=== PATIENT | male | born 1970 | race Hispanic/Latino ===

== ENCOUNTER 2022-03-06 22:10 | Inpatient (IN) | payer MEDICARE ==
[2022-03-06] MEDS ORDERED: ONDANSETRON 4 MG/2 ML INJ IV ONE (23:20)
[2022-03-06] MEDS ORDERED: cefTRIAXone/NS 1 GM/50 ML 1 GM/50 ML BAG IV ONE (23:20)
[2022-03-06] MEDS ORDERED: MORPHINE 4 MG/1 ML INJ IV ONE (23:20)
[2022-03-06] MEDS ORDERED: SODIUM CHLORIDE 0.9% 1000 ML IV SOLN IV ONE (23:20)
[2022-03-06] MEDS ORDERED: VANCOMYCIN 1,750 MG in SODIUM CHLORIDE 0.9% 500 ML 500 ML IV ONE (23:20)
[2022-03-06] MEDS ORDERED: TETANUS,DIPH,PERTUSS(ACELL) VACCINE 0.5 ML SYRINGE IM ONE (23:22)
--- NOTE | 2022-03-06 23:26 | Emergency Department Report ---
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 He denies headache, neck pain, chest pain. He denies IV drug use. He is not sure if he is having bladder or bowel retention or incontinence. He has some preserved sensation in his lower extremities. This is never happened to him before. -: hour(s) Location: abdomen Consistency: constant Improves with: none Worsens with: none - Related Data Allergies Allergy/AdvReac Type Severity Reaction Status Date / Time Fish Containing Products Allergy Anaphylaxis Verified 03/07/22 00:21 ED Review of Systems ROS: Stated complaint: LEG NUMBNESS Other details as noted in HPI Constitutional: fever, malaise, weakness Eyes: denies: eye discharge ENT: denies: epistaxis Respiratory: denies: wheezing Cardiovascular: denies: syncope Gastrointestinal: abdominal pain Genitourinary: denies: dysuria Musculoskeletal: denies: back pain Skin: lesions Neurological: weakness ED Past Medical Hx - Past Medical History Previous Medical History?: Yes Hx Diabetes: Yes Additional medical history: DVT - Surgical History Past Surgical History?: No - Social History Smoking Status: Current Every Day Smoker Substance Use Type: None ED Physical Exam - General Limitations: Physical Limitation General appearance: alert, anxious, obese - Head Head exam: Present: atraumatic, normocephalic - Eye Eye exam: Present: normal appearance, EOMI. Absent: nystagmus - ENT ENT exam: Present: normal exam, normal orophraynx, mucous membranes moist, normal external ear exam - Neck Neck exam: Present: normal inspection, full ROM. Absent: tenderness, meningismus - Respiratory Respiratory exam: Present: normal lung sounds bilaterally. Absent: respiratory distress, wheezes, rales, rhonchi, stridor, decreased breath sounds - Cardiovascular Cardiovascular Exam: Present: normal rhythm, tachycardia, normal heart sounds. Absent: bradycardia, irregular rhythm, systolic murmur, diastolic murmur, rubs, gallop - GI/Abdominal GI/Abdominal exam: Present: soft, tenderness. Absent: distended, guarding, rebound, rigid, pulsatile mass - Rectal Rectal exam: Present: normal inspection, decreased rectal tone - exam: Present: normal inspection - Extremities Exam Extremities exam: Present: other (2+ pulses noted to the bilateral upper and lower extremities. There is no long bony tenderness. The muscular compartments are soft. Lower extremities are warm and well-perfused). Absent: normal inspection (There is erythema and oozing noted to the right great toe), full ROM, tenderness, calf tenderness - Back Exam Back exam: Present: normal inspection. Absent: tenderness, CVA tenderness (R), CVA tenderness (L), paraspinal tenderness, vertebral tenderness - Neurological Exam Neurological exam: Present: alert (Plantar reflexes minimally intact. Quadriceps are mute), oriented X3, motor sensory deficit, other (There is no facial droop. The tongue is midline. EOMI. 5/5 strength bilateral upper e xtremities. Sensation is intact to light touch in the bilateral upper extremities. 0 out of 5 strength bilateral lower extremities. Sensation is decreased to light touch in the bilateral lower extremities.). Absent: reflexes normal - Psychiatric Psychiatric exam: Present: anxious - Skin Skin exam: Present: warm ED Course Vital Signs 03/06/22 03/07/22 03/07/22 23:00 00:00 00:04 Temperature 99 F 101.2 F H Pulse Rate 98 H 105 H 105 H Respiratory 18 18 Rate Blood Pressure 100/64 Blood Pressure 107/60 [Left] O2 Sat by Pulse 98 95 Oximetry 03/07/22 03/07/22 03/07/22 00:06 00:13 00:14 Temperature Pulse Rate 106 H 104 H 101 H Respiratory 22 Rate Blood Pressure 97/60 Blood Pressure 97/60 [Left] O2 Sat by Pulse 93 Oximetry - Reevaluation(s) Reevaluation #1: 03/07/22 00:21 Differential diagnosis, including but not limited to: Spinal epidural abscess, intra-abdominal abscess, psoas abscess, pneumonia, UTI, right great toe abscess, spinal infarct Assessment and plan: 51-year-old gentleman, febrile, tachycardic, with obvious right great toe abscess, with complaints of lower extremity weakness and numbness. He also has diffuse abdominal pain and mild tenderness. Code sepsis activated overhead. Start broad-spectrum antibiotics, appropriate fluids, pain medication, and supportive care. Obtain CT scan of the CT and L-spine, CT scan abdomen pelvis, and right foot x-ray. Do not have access to MRI capability at this point time. Discussed with neurosurgery and general surgery once initial diagnostic studies have resulted. Multiple phone calls made to the lab to expedite results of labs. Patient reports a shellfish/seafood allergy, but not a true iodine allergy 03/07/22 00:40 Right x-ray toe reviewed and appreciated. We will also consider endocarditis at this point in time. Additional blood cultures ordered. Contacted general surgery on-call, Dr. Santos. Discussed history, physical, laboratory studies and imaging studies, and he will follow in consultation 03/07/22 00:53 Discussed the patient's history, physical, laboratory studies imaging studies, and clinical impression with neurology, Dr. Galvan. He does recommend rapid acquisition of MRI T and L-spine with and without contrast. We both agree this patient is not a tPA candidate. Laboratory studies are reviewed and appreciated. We will discuss with neurosurgery once initial imaging studies have resulted. 03/07/22 02:[address] and L-spine reviewed and appreciated. CT scan abdomen pelvis reviewed and appreciated. Lower extremity DVT study ordered. Hold anticoagulation given potential surgical consideration for this patient. Contacted neurosurgeon on-call, Dr. Wren. Discussed the patient's history, physical, laboratory studies and imaging studies and clinical impression. He will follow in consultation. He is in agreement that additional resuscitation, in the form of fluids, antibiotics and supportive care are indicated, patient not an operative candidate at this time. We are in agreement to order urgent MRI T and L-spine, with and without IV contrast, which can be done first thing in the morning. He advises that his group will be able to follow in consultation. Blood pressure is improved, patient put out approximately 1200 cc of urine. Hospital physician is paged to arrange admission. CT scan abdomen pelvis shows no intra-abdominal abscess. 03/07/22 02:35 Reevaluation #2: 03/07/22 03:11 Dr Salcedo to admit to [facility] ED Medical Decision Making - Lab Data Result diagrams: 03/06/22 23:42 03/06/22 23:42 Vital Signs 03/06/22 03/07/22 03/07/22 23:00 00:00 00:04 Temperature 99 F 101.2 F H Pulse Rate 98 H 105 H 105 H Respiratory 18 18 Rate Blood Pressure 100/64 Blood Pressure 107/60 [Left] O2 Sat by Pulse 98 95 Oximetry 03/07/22 03/07/22 03/07/22 00:06 00:13 00:14 Temperature Pulse Rate 106 H 104 H 101 H Respiratory 22 Rate Blood Pressure 97/60 Blood Pressure 97/60 [Left] O2 Sat by Pulse 93 Oximetry Rectal temperature 101.2 degrees Lab Results 03/06/22 03/06/22 03/06/22 Range/Units 00:00 00:00 23:42 WBC 17.0 H (4.5-11.0) K/mm3 RBC 4.12 (3.65-5.03) M/mm3 Hgb 11.9 (11.8-15.2) gm/dl Hct 35.9 (35.5-45.6) % MCV 87 (84-94) fl MCH 29 (28-32) pg MCHC 33 (32-34) % RDW 13.9 (13.2-15.2) % Plt Count 306 (140-440) K/mm3 Lymph % (Auto) 5.2 L (13.4-35.0) % [place] % (Auto) 6.2 (0.0-7.3) % Eos % (Auto) 0.2 (0.0-4.3) % Baso % (Auto) 0.3 (0.0-1.8) % Lymph # (Auto) 0.9 L (1.2-5.4) K/mm3 [place] # (Auto) 1.0 H (0.0-0.8) K/mm3 Eos # (Auto) 0.0 (0.0-0.4) K/mm3 Baso # (Auto) 0.0 (0.0-0.1) K/mm3 Seg Neutrophils % 88.1 H (40.0-70.0) % Seg Neutrophils # 15.0 H (1.8-7.7) K/mm3 PT (12.2-14.9) Sec. INR (0.87-1.13) APTT (24.2-36.6) Sec. VBG pH 7.480 H (7.320-7.420) Estimated GFR ml/min BUN/Creatinine Ratio % Lactic Acid 1.40 (0.7-2.0) mmol/L Troponin T (0.00-0.029) ng/mL Albumin/Globulin Ratio % 03/06/22 03/06/22 Range/Units 23:42 23:42 WBC (4.5-11.0) K/mm3 RBC (3.65-5.03) M/mm3 Hgb (11.8-15.2) gm/dl Hct (35.5-45.6) % MCV (84-94) fl MCH (28-32) pg MCHC (32-34) % RDW (13.2-15.2) % Plt Count (140-440) K/mm3 Lymph % (Auto) (13.4-35.0) % [place] % (Auto) (0.0-7.3) % Eos % (Auto) (0.0-4.3) % Baso % (Auto) (0.0-1.8) % Lymph # (Auto) (1.2-5.4) K/mm3 [place] # (Auto) (0.0-0.8) K/mm3 Eos # (Auto) (0.0-0.4) K/mm3 Baso # (Auto) (0.0-0.1) K/mm3 Seg Neutrophils % (40.0-70.0) % Seg Neutrophils # (1.8-7.7) K/mm3 PT 15.3 H (12.2-14.9) Sec. INR 1.09 (0.87-1.13) APTT 24.3 (24.2-36.6) Sec. VBG pH (7.320-7.420) Estimated GFR 58 ml/min BUN/Creatinine Ratio 14 % Lactic Acid (0.7-2.0) mmol/L Troponin T < 0.010 (0.00-0.029) ng/mL Albumin/Globulin Ratio 0.8 % Lab Results 03/06/22 03/06/22 03/06/22 Range/Units 00:00 00:00 23:42 WBC 17.0 H (4.5-11.0) K/mm3 RBC 4.12 (3.65-5.03) M/mm3 Hgb 11.9 (11.8-15.2) gm/dl Hct 35.9 (35.5-45.6) % MCV 87 (84-94) fl MCH 29 (28-32) pg MCHC 33 (32-34) % RDW 13.9 (13.2-15.2) % Plt Count 306 (140-440) K/mm3 Lymph % (Auto) 5.2 L (13.4-35.0) % [place] % (Auto) 6.2 (0.0-7.3) % Eos % (Auto) 0.2 (0.0-4.3) % Baso % (Auto) 0.3 (0.0-1.8) % Lymph # (Auto) 0.9 L (1.2-5.4) K/mm3 [place] # (Auto) 1.0 H (0.0-0.8) K/mm3 Eos # (Auto) 0.0 (0.0-0.4) K/mm3 Baso # (Auto) 0.0 (0.0-0.1) K/mm3 Seg Neutrophils % 88.1 H (40.0-70.0) % Seg Neutrophils # 15.0 H (1.8-7.7) K/mm3 PT (12.2-14.9) Sec. INR (0.87-1.13) APTT (24.2-36.6) Sec. VBG pH 7.480 H (7.320-7.420) Sodium (137-145) mmol/L Potassium (3.6-5.0) mmol/L Chloride (98-107) mmol/L Carbon Dioxide (22-30) mmol/L Anion Gap mmol/L BUN (9-20) mg/dL Creatinine (0.8-1.3) mg/dL Estimated GFR ml/min BUN/Creatinine Ratio % Glucose (75-100) mg/dL Lactic Acid 1.40 (0.7-2.0) mmol/L Calcium (8.4-10.2) mg/dL Total Bilirubin (0.1-1.2) mg/dL AST (5-40) units/L ALT (7-56) units/L Alkaline Phosphatase (35-129) units/L Troponin T (0.00-0.029) ng/mL Total Protein (6.3-8.2) g/dL Albumin (3.9-5) g/dL Albumin/Globulin Ratio % 03/06/22 03/06/22 Range/Units 23:42 23:42 WBC (4.5-11.0) K/mm3 RBC (3.65-5.03) M/mm3 Hgb (11.8-15.2) gm/dl Hct (35.5-45.6) % MCV (84-94) fl MCH (28-32) pg MCHC (32-34) % RDW (13.2-15.2) % Plt Count (140-440) K/mm3 Lymph % (Auto) (13.4-35.0) % [place] % (Auto) (0.0-7.3) % Eos % (Auto) (0.0-4.3) % Baso % (Auto) (0.0-1.8) % Lymph # (Auto) (1.2-5.4) K/mm3 [place] # (Auto) (0.0-0.8) K/mm3 Eos # (Auto) (0.0-0.4) K/mm3 Baso # (Auto) (0.0-0.1) K/mm3 Seg Neutrophils % (40.0-70.0) % Seg Neutrophils # (1.8-7.7) K/mm3 PT 15.3 H (12.2-14.9) Sec. INR 1.09 (0.87-1.13) APTT 24.3 (24.2-36.6) Sec. VBG pH (7.320-7.420) Sodium 128 L (137-145) mmol/L Potassium 3.3 L (3.6-5.0) mmol/L Chloride 83.9 L (98-107) mmol/L Carbon Dioxide 28 (22-30) mmol/L Anion Gap 19 mmol/L BUN 18 (9-20) mg/dL Creatinine 1.3 (0.8-1.3) mg/dL Estimated GFR 58 ml/min BUN/Creatinine Ratio 14 % Glucose 206 H (75-100) mg/dL Lactic Acid (0.7-2.0) mmol/L Calcium 8.0 L (8.4-10.2) mg/dL Total Bilirubin 1.00 (0.1-1.2) mg/dL AST 29 (5-40) units/L ALT 18 (7-56) units/L Alkaline Phosphatase 141 H (35-129) units/L Troponin T < 0.010 (0.00-0.029) ng/mL Total Protein 7.0 (6.3-8.2) g/dL Albumin 3.0 L (3.9-5) g/dL Albumin/Globulin Ratio 0.8 % - EKG Data -: EKG Interpreted by [facility] EKG shows normal: sinus rhythm Rate: tachycardia - EKG Data When compared to previous EKG there are: previous EKG unavailable 03/07/22 00:16 The EKG is interpreted at 12: 0 8 AM Sinus rhythm, tachycardia, rate 103 bpm. Normal axis, left ventricular hypertrophy, motion artifact, QTC 505 ms. Abnormal EKG. Not a STEMI. - Radiology Data Radiology results: pending, report reviewed, image reviewed CHEST 1 VIEW 03/06/2022 11:22 PM INDICATION / CLINICAL INFORMATION: sepsis. COMPARISON: None available. FINDINGS: SUPPORT DEVICES: None. HEART / MEDIASTINUM: No significant abnormality. LUNGS / PLEURA: No significant pulmonary or pleural abnormality. No pneumothorax. ADDITIONAL FINDINGS: No significant additional findings. IMPRESSION: 1. No acute findings. Signer Name: Johnnie Piña DO Signed: 03/06/2022 11:27 PM Workstation Name: [id number] RIGHT FOOT 3 VIEW(S) INDICATION / CLINICAL INFORMATION: right great toe wound COMPARISON: None available. FINDINGS: BONES / JOINT(S): Cortical irregularity and erosive changes along distal aspect of proximal phalanx of the first digit suggesting osteomyelitis. No significant arthritis. SOFT TISSUES: No subcutaneous gas or clearly identified skin ulceration. ADDITIONAL FINDINGS: None. Signer Name: Johnnie Piña DO Signed: 03/06/2022 11:27 PM Workstation Name: [id number] CT ABDOMEN AND PELVIS WITH CONTRAST INDICATION / CLINICAL INFORMATION: acute abd pain sepsis. TECHNIQUE: Axial CT images were obtained through the abdomen and pelvis after 100 cc of Omnipaque [address] scans at this location are performed using CT dose reduction for ALARA by means of automated exposure control. COMPARISON: None available. FINDINGS: LOWER CHEST: There is a 7 mm solid pulmonary nodule within the right lung base (series 2 image 11). There is a trace right pleural effusion with adjacent compressive atelectasis. AORTA / ARTERIES: Mild atherosclerotic calcification without acute abnormality. IVC / VEINS: There is hypoattenuation within the right proximal superficial fem oral artery and common femoral artery suggesting possible thrombus. LYMPH NODES: No significant adenopathy. COLON: No significant abnormality. APPENDIX: No significant abnormality. STOMACH / SMALL BOWEL: No significant abnormality. PERITONEUM: No free fluid. No free air. No fluid collection. LIVER: No significant abnormality. GALLBLADDER: No significant abnormality. BILE DUCTS: No significant abnormality. PANCREAS: No significant abnormality. SPLEEN: No significant abnormality. ADRENALS: No significant abnormality. RIGHT KIDNEY / URETER: No significant abnormality. LEFT KIDNEY / URETER: No significant abnormality. URINARY BLADDER: No significant abnormality. REPRODUCTIVE ORGANS: No significant abnormality. SKELETAL SYSTEM: Scattered degeneration. ADDITIONAL FINDINGS: None. IMPRESSION: 1. Low attenuation is seen within the right superficial femoral and common femoral veins which nonspecific may represent thrombus. Recommend DVT ultrasound for clarification. 2. No acute intr a-abdominal intrapelvic pathology. 3. Single incidental pulmonary nodule(s) in the right lower lobe measuring 7 mm with solid characteristics. Recommendation according to Fleischner Society 2017 Guidelines: Low Risk Patient: CT at 6-12 months, then consider CT at 18-24 months; High Risk Patient: CT at 6-12 months, then CT at 18-24 months 4. Trace right pleural effusion with adjacent atelectasis. Signer Name: Johnnie Piña DO Signed: 03/07/2022 12:50 AM Workstation Name: [id number] CT CERVICAL SPINE WITHOUT CONTRAST INDICATION / CLINICAL INFORMATION: lower ext weakness numbess sepsis. TECHNIQUE: Axial CT images were obtained through the cervical spine. Sagittal and coronal reformatted images were produced. All CT scans at this location are performed using CT dose reduction for ALARA by means of automated exposure control. COMPARISON: None available. FINDINGS: VERTEBRAE: No significant abnormality. ALIGNMENT: No significant abnormality. DISC SPACES: There is moderate to severe degenerative disc disease at C6-C7 and mild scattered degenerative disc disease throughout the remainder of the cervical spine. FACET JOINTS: No significant abnormality. CRANIOCERVICAL JUNCTION:No significant abnormality. SPINAL CANAL: No significant abnormality. PARASPINAL SOFT TISSUES: No significant abnormality. ADDITIONAL FINDINGS: None. LUNG APICES: No significant abnormality of visualized lungs. IMPRESSION: 1. No acute fracture or static subluxation of the cervical spine. 2. Moderate severe degenerative disc disease at C6-C7. CT THORACIC SPINE WITHOUT CONTRAST INDICATION / CLINICAL INFORMATION: lower ext weakness numbess sepsis. TECHNIQUE: Axial CT images were obtained through the thoracic spine. Sagittal and coronal reformatted images were produced. All CT scans at this location are performed using CT dose reduction for ALARA by means of automated exposure control. COMPARISON: None available. FINDINGS: VERTEBRAE: No significant abnormality. ALIGNMENT: No significant abnormality. DISC SPACES: Scattered degenerative disc disease throughout the thoracic spine. FACET and COSTOVERTEBRAL JOINTS: Scattered degenerative facet disease throughout the thoracic spine. CERVICOTHORACIC JUNCTION:No significant abnormality. SPINAL CANAL: No significant abnormality. PARASPINAL SOFT TISSUES: No significant abnormality. ADDITIONAL FINDINGS: None. LUNGS: There is scattered atelectasis within the visualized lungs. There is a trace right pleural effusion with adjacent atelectasis. Solid pulmonary nodule within the right lower lobe better appreciated on CT of the abdomen and pelvis. IMPRESSION: 1. No acute fracture or static subluxation of the thoracic spine. 2. Scattered spondylosis. 3. Scattered atelectasis. CT LUMBAR SPINE WITHOUT CONTRAST INDICATION / CLINICAL INFORMATION: lower ext weakness numbess sepsis. TECHNIQUE: Axial CT images were obtained through the lumbar spine. Sagittal and coronal reformatted images were produced. All CT scans at this location are performed using CT dose reduction for ALARA by means of automated exposure control. COMPARISON: None available. FINDINGS: VERTEBRAE: No significant abnormality. ALIGNMENT: No significant abnormality. DISC SPACES: There is scattered degenerative disc disease throughout the lumbar spine, most pronounced at L5-S1. FACET JOINTS: There is scattered degenerative facet disease, most pronounced at L5-S1. SPINAL CANAL: No significant abnormality. SACRUM:No significant abnormality of the visualized sacrum. PARASPINAL SOFT TISSUES: No significant abnormality. ADDITIONAL FINDINGS: None. IMPRESSION: 1. No static subluxation or acute fracture of the lumbar spine. 2. Scattered degenerative disc and facet disease of the lumbar spine. Signer Name: Johnnie Piña DO Signed: 03/07/2022 12:57 AM Workstation Name: [id number] Critical Care Time: Yes Critical care time in (mins) excluding proc time.: 45 Critical care attestation.: If time is entered above; I have spent that time in minutes in the direct care of this critically ill patient, excluding procedure time. ED Disposition Clinical Impression: Sepsis, Open wound of right great toe, Acute abdominal pain, Weakness of lower extremity Disposition: ADMITTED INPATIENT Is pt being admited?: Yes Does the pt Need Aspirin: No Condition: Critical Referrals: LENA MANCUSO MD [Primary Care Provider] - 3-5 Days
[2022-03-06] MEDS ORDERED: VANCOMYCIN PHARMACY TO DOSE IV SCH (23:45)
[2022-03-07 00:31] LABS: Alanine Aminotransferase 18 units/L (7-56); BUN/Creatinine Ratio 14; Blood Urea Nitrogen 18 mg/dL (9-20); Hemolysis Index 0
--- NOTE | 2022-03-07 00:31 | XRay Report ---
RIGHT FOOT 3 VIEW(S) INDICATION / CLINICAL INFORMATION: right great toe wound COMPARISON: None available. FINDINGS: BONES / JOINT(S): Cortical irregularity and erosive changes along distal aspect of proximal phalanx o f the first digit suggesting osteomyelitis. No significant arthritis. SOFT TISSUES: No subcutaneous gas or clearly identified skin ulceration. ADDITIONAL FINDINGS: None. Signer Name: Johnnie Piña DO Signed: 03/07/2022 12:27 AM Workstation Name: [id number]
--- NOTE | 2022-03-07 00:32 | XRay Report ---
CHEST 1 VIEW 03/06/2022 11:22 PM INDICATION / CLINICAL INFORMATION: sepsis. COMPARISON: None available. FINDINGS: SUPPORT DEVICES: None. HEART / MEDIASTINUM: No significant abnormality. LUNGS / PLEURA: No significant pulmonary or pleural abnormality. No pneumothorax. ADDITIONAL FINDINGS: No significant additional findings. IMPRESSION: 1. No acute findings. Signer Name: Johnnie Piña DO Signed: 03/07/2022 12:27 AM Workstation Name: [id number]
[2022-03-07 00:34] LABS: Basophils % (Auto) 0.3 % (0.0-1.8); Eosinophils % (Auto) 0.2 % (0.0-4.3); Hematocrit 35.9 % (35.5-45.6); Hemoglobin 11.9 gm/dl (11.8-15.2); INR 1.09 (0.87-1.13); Lymphocytes # (Auto) 0.9 K/mm3 (1.2-5.4); Lymphocytes % (Auto) 5.2 % (13.4-35.0); Mean Corpuscular HGB Conc 33 % (32-34); Mean Corpuscular Volume 87 fl (84-94); Monocytes % (Auto) 6.2 % (0.0-7.3); Platelet Count 306 K/mm3 (140-440); Red Blood Count 4.12 M/mm3 (3.65-5.03); Red Cell Distribution Width 13.9 % (13.2-15.2)
[2022-03-07 00:35] LABS: Partial Thromboplastin Time 24.3 Sec. (24.2-36.6)
[2022-03-07 00:54] LABS: Erythrocyte Sedimentation Rate 50 mm/Hr (0-20)
[2022-03-07] MEDS ORDERED: ACETAMINOPHEN 500 MG TAB PO ONE (01:44)
[2022-03-07] MEDS ORDERED: SODIUM CHLORIDE 0.9% 1000 ML 3,000 ML ONE (01:47)
--- NOTE | 2022-03-07 01:54 | Cat Scan Report ---
CT ABDOMEN AND PELVIS WITH CONTRAST INDICATION / CLINICAL INFORMATION: acute abd pain sepsis. TECHNIQUE: Axial CT images were obtained through the abdomen and pelvis after 100 cc of Omnipaque [address] scans at this location are performed using CT dose reduction for ALARA by means of automated exposure control. COMPARISON: None available. FINDINGS: LOWER CHEST: There is a 7 mm solid pulmonary nodule within the right lung base (series 2 image 11). T here is a trace right pleural effusion with adjacent compressive atelectasis. AORTA / ARTERIES: Mild atherosclerotic calcification without acute abnormality. IVC / VEINS: There is hypoattenuation within the right proximal superficial femoral artery and common femoral artery suggesting possible thrombus. LYMPH NODES: No significant adenopathy. COLON: No significant abnormality. APPENDIX: No significant abnormality. STOMACH / SMALL BOWEL: No significant abnormality. PERITONEUM: No free fluid. No free air. No fluid collection. LIVER: No significant abnormality. GALLBLADDER: No significant abnormality. BILE DUCTS: No significant abnormality. PANCREAS: No significant abnormality. SPLEEN: No significant abnormality. ADRENALS: No significant abnormality. RIGHT KIDNEY / URETER: No significant abnormality. LEFT KIDNEY / URETER: No significant abnormality. URINARY BLADDER: No significant abnormality. REPRODUCTIVE ORGANS: No significant abnormality. SKELETAL SYSTEM: Scattered degeneration. ADDITIONAL FINDINGS: None. IMPRESSION: 1. Low attenuation is seen within the right superficial femoral and common femoral veins which nonspe cific may represent thrombus. Recommend DVT ultrasound for clarification. 2. No acute intra-abdominal intrapelvic pathology. 3. Single incidental pulmonary nodule(s) in the right lower lobe measuring 7 mm with solid characteri stics. Recommendation according to Fleischner Society 2017 Guidelines: Low Risk Patient: CT at 6-12 m onths, then consider CT at 18-24 months; High Risk Patient: CT at 6-12 months, then CT at 18-24 month s 4. Trace right pleural effusion with adjacent atelectasis. Signer Name: Johnnie Piña DO Signed: 03/07/2022 1:50 AM Workstation Name: [id number]
--- NOTE | 2022-03-07 02:01 | Cat Scan Report ---
CT CERVICAL SPINE WITHOUT CONTRAST INDICATION / CLINICAL INFORMATION: lower ext weakness numbess sepsis. TECHNIQUE: Axial CT images were obtained through the cervical spine. Sagittal and coronal reformatted images were produced. All CT scans at this location are performed using CT dose reduction for ALARA by means of automated exposure control. COMPARISON: None available. FINDINGS: VERTEBRAE: No significant abnormality. ALIGNMENT: No significant abnormality. DISC SPACES: There is moderate to severe degenerative disc disease at C6-C7 and mild scattered degene rative disc disease throughout the remainder of the cervical spine. FACET JOINTS: No significant abnormality. CRANIOCERVICAL JUNCTION:No significant abnormality. SPINAL CANAL: No significant abnormality. PARASPINAL SOFT TISSUES: No significant abnormality. ADDITIONAL FINDINGS: None. LUNG APICES: No significant abnormality of visualized lungs. IMPRESSION: 1. No acute fracture or static subluxation of the cervical spine. 2. Moderate severe degenerative disc disease at C6-C7. CT THORACIC SPINE WITHOUT CONTRAST INDICATION / CLINICAL INFORMATION: lower ext weakness numbess sepsis. TECHNIQUE: Axial CT images were obtained through the thoracic spine. Sagittal and coronal reformatted images were produced. All CT scans at this location are performed using CT dose reduction for ALARA by means of automated exposure control. COMPARISON: None available. FINDINGS: VERTEBRAE: No significant abnormality. ALIGNMENT: No significant abnormality. DISC SPACES: Scattered degenerative disc disease throughout the thoracic spine. FACET and COSTOVERTEBRAL JOINTS: Scattered degenerative facet disease throughout the thoracic spine. CERVICOTHORACIC JUNCTION:No significant abnormality. SPINAL CANAL: No significant abnormality. PARASPINAL SOFT TISSUES: No significant abnormality. ADDITIONAL FINDINGS: None. LUNGS: There is scattered atelectasis within the visualized lungs. There is a trace right pleural eff usion with adjacent atelectasis. Solid pulmonary nodule within the right lower lobe better appreciate d on CT of the abdomen and pelvis. IMPRESSION: 1. No acute fracture or static subluxation of the thoracic spine. 2. Scattered spondylosis. 3. Scattered atelectasis. CT LUMBAR SPINE WITHOUT CONTRAST INDICATION / CLINICAL INFORMATION: lower ext weakness numbess sepsis. TECHNIQUE: Axial CT images were obtained through the lumbar spine. Sagittal and coronal reformatted i mages were produced. All CT scans at this location are performed using CT dose reduction for ALARA by means of automated exposure control. COMPARISON: None available. FINDINGS: VERTEBRAE: No significant abnormality. ALIGNMENT: No significant abnormality. DISC SPACES: There is scattered degenerative disc disease throughout the lumbar spine, most pronounce d at L5-S1. FACET JOINTS: There is scattered degenerative facet disease, most pronounced at L5-S1. SPINAL CANAL: No significant abnormality. SACRUM:No significant abnormality of the visualized sacrum. PARASPINAL SOFT TISSUES: No significant abnormality. ADDITIONAL FINDINGS: None. IMPRESSION: 1. No static subluxation or acute fracture of the lumbar spine. 2. Scattered degenerative disc and facet disease of the lumbar spine. Signer Name: Johnnie Piña DO Signed: 03/07/2022 1:57 AM Workstation Name: [id number]
[2022-03-07] MEDS ORDERED: ONDANSETRON 4 MG/2 ML INJ ONE (02:10)
[2022-03-07] MEDS ORDERED: MORPHINE 4 MG/1 ML INJ ONE (02:11)
[2022-03-07] MEDS ORDERED: SODIUM CHLORIDE 0.9% 1000 ML 1,000 ML IV ONE ×2 (02:14→11:15)
[2022-03-07 02:41] LABS: Bacteria,Urine 1+ /HPF (Negative); Bilirubin,Urine NEG (Negative); Blood,Urine LG (Negative); Color,Urine Yellow (Yellow); Mucus,Urine 1+ /HPF; RBC,Urine > 182.0 /HPF (0.0-6.0)
--- NOTE | 2022-03-07 04:00 | Vascular Lab Report ---
DUPLEX DOPPLER LOWER EXTREMITY VEINS, BILATERAL INDICATION / CLINICAL INFORMATION: ABNORMAL CT ABD/PELVIS, DVT. TECHNIQUE: Duplex doppler imaging was performed through the veins of both lower extremities using valencia ous compression and other maneuvers. COMPARISON: None available. FINDINGS: RIGHT COMMON FEMORAL VEIN: Acute thrombus. RIGHT FEMORAL VEIN: Acute thrombus. RIGHT POPLITEAL VEIN: Acute thrombus. RIGHT CALF VEINS: Negative. LEFT COMMON FEMORAL VEIN: Negative. LEFT FEMORAL VEIN: Negative. LEFT POPLITEAL VEIN: Negative. LEFT CALF VEINS: Negative. ADDITIONAL FINDINGS: None. IMPRESSION: 1. Deep vein thromboses noted from the right popliteal vein to the right common femoral vein. IMPORTANT FINDING Time of Communication (TILE PROFESSIONAL/CDT): 2:55 AM Licensed Practitioner Receiving Report: Dr. Richards Signer Name: Johnnie Piña DO Signed: 03/07/2022 3:55 AM Workstation Name: [id number]
[2022-03-07] MEDS: NORepinephrine/NS 8 MG-250 ML 8 MG/250 ML INFUS..BTL IV SCH ×2 (04:14→19:25)
[2022-03-07] MEDS ORDERED: ALBUTEROL 2.5 MG/3 ML NEBU IH PRN (04:27)
[2022-03-07] MEDS ORDERED: MORPHINE 2 MG/1 ML INJ IV PRN (04:27)
[2022-03-07] MEDS ORDERED: HYDROmorphone 1 MG/1 ML INJ IV PRN (04:27)
[2022-03-07] MEDS ORDERED: ONDANSETRON 4 MG/2 ML INJ IV PRN (04:27)
[2022-03-07] MEDS ORDERED: DEXTROSE 50% IN WATER (25GM) 50 ML SYRINGE IV PRN (04:27)
[2022-03-07] MEDS ORDERED: BUPIVACAINE-EPINEPHRINE/PF 0.25%-1:200,000 (10 ML) VIAL INFILTRATI ONE (04:28)
[2022-03-07] MEDS ORDERED: fentaNYL 100 MCG/2 ML INJ ONE (04:40)
--- NOTE | 2022-03-07 04:41 | History and Physical Report ---
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 He denies headache, neck pain, chest pain. Patient denies IV drug use. Patient is not sure if he is having bladder or bowel retention or incontinence.He has some preserved sensation in his lower extremities. In the emergency CT scan abdomen pelvis shows no intra-abdominal abscess. Chest x-ray shows no acute finding, CT cervical spine without contrast shows no acute fracture or static subluxation of the cervical spine. Moderate severe degenerative disc disease at C6-C7. CT lumbar spine without contrast shows no static subluxation or acute fracture of the lumbar spine. Scattered degenerative disc and facet disease of the lumbar spine. Foot x-ray shows cortical irregularity and erosive changes along the distal aspect of the proximal phalanx of the first disease suggesting osteomyelitis. Venous Doppler of the lower extremity shows deep vein thrombus noted from right popliteal vein to the right common femoral vein Past History Past Medical History: diabetes, DVT Past Surgical History: No surgical history Social history: smoking Family history: hypertension Medications and Allergies Allergies Allergy/AdvReac Type Severity Reaction Status Date / Time Fish Containing Products Allergy Anaphylaxis Verified 03/07/22 00:21 Active Meds: Active Medications Acetaminophen (Acetaminophen 325 Mg Tab) 650 mg PO Q4H PRN PRN Reason: Pain MILD(1-3)/Fever >100.5/DIETRICH Albuterol (Albuterol 2.5 Mg/3 Ml Nebu) 2.5 mg IH Q3HRT PRN PRN Reason: Shortness Of Breath Albuterol/Ipratropium (Ipratropium/Albuterol Sulfate 3 Ml Ampul.Neb) 1 ampul IH Q6HRT KARINE Dextrose (Dextrose 50% In Water (25gm) 50 Ml Syringe) 50 ml IV Q30MIN PRN; Protocol PRN Reason: Hypoglycemia Famotidine (Famotidine 20 Mg/2 Ml Inj) 20 mg IV BID KARINE Hydromorphone HCl (Hydromorphone 1 Mg/1 Ml Inj) 0.5 mg IV Q3H PRN PRN Reason: Pain , Severe (7-10) NORepinephrine/NS 8 MG-250 ML (Norepinephrine/Ns 8 Mg-250 Ml (Double Conc)) 8 mg in 250 mls @ 3.75 mls/hr IV TITRATE KARINE; Protocol Last Admin: 03/07/22 04:14 Dose: 2 mcg/min, 3.75 mls/hr Sodium Chloride (Nacl 0.9% 1000 Ml) 1,000 mls @ 125 mls/hr IV DIRECT KARINE Vancomycin HCl (Vancomycin/Ns 1 Gm/250 Ml) 1 gm in 250 mls @ 166.667 mls/hr IV Q12H KARINE; Protocol Piperacillin Sod/Tazobactam Sod (Zosyn/Ns 4.5gm/100ml) 4.5 gm in 100 mls @ 200 mls/hr IV Q8H KARINE; Protocol Insulin Human Lispro (Insulin Lispro 100 Unit/Ml) 0 unit SUB-Q Q6HR KARINE; Protocol Morphine Sulfate (Morphine 2 Mg/1 Ml Inj) 2 mg IV Q4H PRN PRN Reason: Pain, Moderate (4-6) Ondansetron HCl (Ondansetron 4 Mg/2 Ml Inj) 4 mg IV Q8H PRN PRN Reason: Nausea And Vomiting Sodium Chloride (Sodium Chloride 0.9% 10 Ml Flush Syringe) 10 ml IV BID KARINE Sodium Chloride (Sodium Chloride 0.9% 10 Ml Flush Syringe) 10 ml IV PRN PRN PRN Reason: LINE FLUSH Review of Systems All systems: negative Constitutional: weakness, other (complaint of bilateral lower extremity weakness and numbness, which started approximately 3 hours prior to ER arrival, and diffuse abdominal pain. He denies headache, neck pain, chest pain.) Exam - Constitutional Vitals: Temp Pulse Resp BP Pulse Ox 101.2 F H 97 H 21 96/52 96 03/07/22 00:00 03/07/22 04:31 03/07/22 04:31 03/07/22 03:45 03/07/22 04:31 General appearance: Present: no acute distress, well-nourished - EENT Eyes: Present: PERRL ENT: hearing intact, clear oral mucosa - Neck Neck: Present: supple, normal ROM - Respiratory Respiratory effort: normal Respiratory: bilateral: diminished - Cardiovascular Heart Sounds: Present: S1 & S2. Absent: rub, click - Extremities Extremities: pulses symmetrical, No edema Peripheral Pulses: within normal limits - Abdominal General gastrointestinal: Present: soft, non-tender, non-distended, normal bowel sounds Male genitourinary: Present: normal - Integumentary Integumentary: Present: clear, warm, dry - Musculoskeletal Musculoskeletal: gait normal, strength equal bilaterally - Psychiatric Psychiatric: appropriate mood/affect, intact judgment & insight - Neurologic Neurologic: CNII-XII intact, moves all extremities HEART Score - HEART Score Troponin: Troponin T < 0.010 ng/mL (0.00-0.029) 03/06/22 23:42 Results - Labs CBC & Chem 7: 03/06/22 23:42 03/06/22 23:42 Labs: Laboratory Last Values WBC 17.0 K/mm3 (4.5-11.0) H 03/06/22 23:42 RBC 4.12 M/mm3 (3.65-5.03) 03/06/22 23:42 Hgb 11.9 gm/dl (11.8-15.2) 03/06/22 23:42 Hct 35.9 % (35.5-45.6) 03/06/22 23:42 MCV 87 fl (84-94) 03/06/22 23:42 MCH 29 pg (28-32) 03/06/22 23:42 MCHC 33 % (32-34) 03/06/22 23:42 RDW 13.9 % (13.2-15.2) 03/06/22 23:42 Plt Count 306 K/mm3 (140-440) 03/06/22 23:42 Lymph % (Auto) 5.2 % (13.4-35.0) L 03/06/22 23:42 [place] % (Auto) 6.2 % (0.0-7.3) 03/06/22 23:42 Eos % (Auto) 0.2 % (0.0-4.3) 03/06/22 23:42 Baso % (Auto) 0.3 % (0.0-1.8) 03/06/22 23:42 Lymph # (Auto) 0.9 K/mm3 (1.2-5.4) L 05/08/22 23:42 [place] # (Auto) 1.0 K/mm3 (0.0-0.8) H 03/06/22 23:42 Eos # (Auto) 0.0 K/mm3 (0.0-0.4) 03/06/22 23:42 Baso # (Auto) 0.0 K/mm3 (0.0-0.1) 03/06/22 23:42 Seg Neutrophils % 88.1 % (40.0-70.0) H 03/06/22 23:42 Seg Neutrophils # 15.0 K/mm3 (1.8-7.7) H 03/06/22 23:42 ESR 50 mm/Hr (0-20) 03/06/22 23:42 PT 15.3 Sec. (12.2-14.9) H 03/06/22 23:42 INR 1.09 (0.87-1.13) 03/06/22 23:42 APTT 24.3 Sec. (24.2-36.6) 03/06/22 23:42 VBG pH 7.480 (7.320-7.420) H 03/06/22 00:00 Sodium 128 mmol/L (137-145) L 03/06/22 23:42 Potassium 3.3 mmol/L (3.6-5.0) L 03/06/22 23:42 Chloride 83.9 mmol/L (98-107) L 03/06/22 23:42 Carbon Dioxide 28 mmol/L (22-30) 03/06/22 23:42 Anion Gap 19 mmol/L 03/06/22 23:42 BUN 18 mg/dL (9-20) 03/06/22 23:42 Creatinine 1.3 mg/dL (0.8-1.3) 03/06/22 23:42 Estimated GFR 58 ml/min 03/06/22 23:42 BUN/Creatinine Ratio 14 % 03/06/22 23:42 Glucose 206 mg/dL (75-100) H 03/06/22 23:42 Lactic Acid 1.80 mmol/L (0.7-2.0) 03/07/22 02:16 Calcium 8.0 mg/dL (8.4-10.2) L 03/06/22 23:42 Total Bilirubin 1.00 mg/dL (0.1-1.2) 03/06/22 23:42 AST 29 units/L (5-40) 03/06/22 23:42 ALT 18 units/L (7-56) 03/06/22 23:42 Alkaline Phosphatase 141 units/L (35-129) H 03/06/22 23:42 Troponin T < 0.010 ng/mL (0.00-0.029) 03/06/22 23:42 C-Reactive Protein 30.70 mg/dL (0.00-1.30) H 03/06/22 23:42 Total Protein 7.0 g/dL (6.3-8.2) 03/06/22 23:42 Albumin 3.0 g/dL (3.9-5) L 03/06/22 23:42 Albumin/Globulin Ratio 0.8 % 03/06/22 23:42 Urine Color Yellow (Yellow) 03/06/22 01:58 Urine Turbidity Clear (Clear) 03/06/22 01:58 Urine pH 5.0 (5.0-7.0) 03/06/22 01:58 Ur Specific [place] 1.018 (1.003-1.030) 03/06/22 01:58 Urine Protein 30 mg/dl mg/dL (Negative) 03/06/22 01:58 Urine Glucose (UA) 150 mg/dL (Negative) 03/06/22 01:58 Urine Ketones Tr mg/dL (Negative) 03/06/22 01:58 Urine Blood Lg (Negative) 03/06/22 01:58 Urine Nitrite Neg (Negative) 03/06/22 01:58 Urine Bilirubin Neg (Negative) 03/06/22 01:58 Urine Urobilinogen 4.0 mg/dL (<2.0) 03/06/22 01:58 Ur Leukocyte Esterase Tr (Negative) 03/06/22 01:58 Urine WBC (Auto) 26.0 /HPF (0.0-6.0) H 03/06/22 01:58 Urine RBC (Auto) > 182.0 /HPF (0.0-6.0) 03/06/22 01:58 U Epithel Cells (Auto) 2.0 /HPF (0-13.0) 03/06/22 01:58 Urine Bacteria (Auto) 1+ /HPF (Negative) 03/06/22 01:58 Urine Mucus 1+ /HPF 03/06/22 01:58 Microbiology: Microbiology 03/06/22 23:42 Peripheral/Venous Blood Culture - Preliminary Culture in Progress 03/06/22 23:42 Peripheral/Venous Blood Culture - Preliminary Culture in Progress - Imaging and Cardiology Chest x-ray: report reviewed Assessment and Plan VTE prophylaxis?: Mechanical Plan of care discussed with patient/family: Yes - Patient Problems (1) Open wound of right great toe Current Visit: Yes Status: Acute Plan to address problem: Admit the patient to the critical care unit. NPO. Normal saline at the rate of 125 cc/h. Vancomycin 1 g IV every 12 hours. Zosyn 4.5 g IV every 8 hours. We consulted and Dr. Tom Joiner for possible surgery (2) Sepsis Current Visit: Yes Status: Acute Plan to address problem: NPO. Normal saline at the rate of 125 cc/h. Vancomycin 1 g IV every 12 hours. Zosyn 4.5 g IV every 8 hours. Recheck CBC in the morning. Blood culture wound culture (3) Diabetes Current Visit: Yes Status: Acute Plan to address problem: Accu-Chek every 6 hours with Humalog coverage moderate dose. Diabetic education. (4) Weakness of lower extremity Current Visit: Yes Status: Acute Plan to address problem: Will do MRI of the lumbar spine and thoracic spine with and without contrast. Neurosurgery evaluation for possible epidural abscess as per the ER physician. (5) DVT (deep venous thrombosis) Current Visit: Yes Status: Acute Plan to address problem: We will hold the anticoagulation right now. Resume anticoagulation when cleared by surgery and neurosurgeon (6) Acute abdominal pain Current Visit: Yes Status: Acute Plan to address problem: NPO. Normal saline at the rate of 125 cc/h. Pepcid 20 mg IV every 12 hours. Morphine 2 mg IV every 4 hours as needed (7) Tobacco abuse Current Visit: Yes Status: Acute Plan to address problem: Counseled the patient regarding quitting smoking. We will put the patient on nicotine patch if needed (8) DVT prophylaxis Current Visit: Yes Status: Acute Plan to address problem: SCD for DVT prophylaxis. Pepcid 20 mg IV every 12 hours for GI prophylaxis. Patient is a full code
[2022-03-07] MEDS ORDERED: fentaNYL 100 MCG/2 ML INJ IV ONE (04:43)
[2022-03-07] MEDS ORDERED: VANCOMYCIN/NS 1 GM/250 ML 1 GM/250 ML BAG IV SCH (05:00)
[2022-03-07] MEDS ORDERED: VANCOMYCIN PHARMACY TO DOSE IV SCH (05:00)
[2022-03-07] MEDS ORDERED: PIPERACIL/TAZOBACTA 4.5/NS 100 4.5 GM/100 ML VIAL IV SCH (05:00)
[2022-03-07] MEDS: SODIUM CHLORIDE 0.9% 1000 ML 1,000 ML IV SCH ×2 (05:44→14:07)
[2022-03-07] MEDS: INSULIN LISPRO 100 UNIT/ML SUB-Q SCH ×3 (06:36→18:45)
[2022-03-07] MEDS: IPRATROPIUM/ALBUTEROL SULFATE 3 ML AMPUL.NEB IH SCH ×3 (08:23→20:11)
--- NOTE | 2022-03-07 08:50 | Progress Note ---
Subjective Date of service: 03/07/22 Interval history: NSGY update: consult received, regarding patient with sepsis and acute lower extremity weakness. Please obtain STAT MRI T/L spine with and without contrast to evaluate for compressive lesion. Please notify immediately once MRI has been performed. Please keep NPO for now pending MRI results. Objective - Vital Sign Vital Signs - 12hr 03/06/22 03/07/22 03/07/22 23:00 00:00 00:04 Temperature 99 F 101.2 F H Pulse Rate 98 H 105 H 105 H Respiratory 18 18 Rate Blood Pressure 100/64 Blood Pressure 107/60 [Left] O2 Sat by Pulse 98 95 Oximetry 03/07/22 03/07/22 03/07/22 00:06 00:13 00:14 Temperature Pulse Rate 106 H 104 H 101 H Respiratory 22 Rate Blood Pressure 97/60 Blood Pressure 97/60 [Left] O2 Sat by Pulse 93 Oximetry 03/07/22 03/07/22 03/07/22 00:16 00:30 00:46 Temperature Pulse Rate 104 H 106 H Respiratory 17 20 20 Rate Blood Pressure 97/60 106/58 98/57 Blood Pressure [Left] O2 Sat by Pulse 94 96 93 Oximetry 03/07/22 03/07/22 03/07/22 01:42 01:46 02:00 Temperature Pulse Rate 107 H 106 H Respiratory 7 L 24 17 Rate Blood Pressure 82/44 106/60 Blood Pressure [Left] O2 Sat by Pulse 97 95 96 Oximetry 03/07/22 03/07/22 03/07/22 02:16 02:30 02:46 Temperature Pulse Rate 109 H 106 H 105 H Respiratory 24 17 18 Rate Blood Pressure 99/57 123/95 114/55 Blood Pressure [Left] O2 Sat by Pulse 99 96 93 Oximetry 03/07/22 03/07/22 03/07/22 03:00 03:16 03:30 Temperature Pulse Rate 102 H 103 H 103 H Respiratory 18 15 15 Rate Blood Pressure 99/61 91/61 82/46 Blood Pressure [Left] O2 Sat by Pulse 93 95 90 Oximetry 03/07/22 03/07/22 03/07/22 03:45 04:31 04:46 Temperature Pulse Rate 102 H 97 H 102 H Respiratory 18 21 22 Rate Blood Pressure 96/52 99/56 Blood Pressure [Left] O2 Sat by Pulse 97 96 83 L Oximetry 03/07/22 03/07/22 03/07/22 05:00 05:16 05:30 Temperature Pulse Rate 98 H 99 H 106 H Respiratory 21 20 15 Rate Blood Pressure 97/55 94/55 100/51 Blood Pressure [Left] O2 Sat by Pulse 98 94 97 Oximetry 03/07/22 03/07/22 03/07/22 05:46 06:00 06:15 Temperature 98.1 F Pulse Rate 100 H 103 H Respiratory 20 20 Rate Blood Pressure 102/49 102/49 Blood Pressure [Left] O2 Sat by Pulse 98 95 Oximetry 03/07/22 03/07/22 03/07/22 06:16 06:30 06:46 Temperature Pulse Rate 97 H 91 H 90 Respiratory 20 19 17 Rate Blood Pressure 74/30 88/42 87/36 Blood Pressure [Left] O2 Sat by Pulse 94 93 94 Oximetry 03/07/22 03/07/22 03/07/22 07:00 07:16 07:30 Temperature Pulse Rate 89 96 H 93 H Respiratory 18 20 20 Rate Blood Pressure 90/39 111/51 121/60 Blood Pressure [Left] O2 Sat by Pulse 95 95 98 Oximetry - Laboratory Findings CBC and BMP: 03/06/22 23:42 03/06/22 23:42 Abnormal Lab Findings: Abnormal Labs 03/06/22 03/06/22 03/06/22 00:00 01:58 23:42 WBC 17.0 H Lymph % (Auto) 5.2 L Lymph # (Auto) 0.9 L [place] # (Auto) 1.0 H Seg Neutrophils % 88.1 H Seg Neutrophils # 15.0 H PT VBG pH 7.480 H Sodium Potassium Chloride Glucose Calcium Alkaline Phosphatase C-Reactive Protein Albumin Urine WBC (Auto) 26.0 H 03/06/22 03/06/22 03/06/22 23:42 23:42 23:42 WBC Lymph % (Auto) Lymph # (Auto) [place] # (Auto) Seg Neutrophils % Seg Neutrophils # PT 15.3 H VBG pH Sodium 128 L Potassium 3.3 L Chloride 83.9 L Glucose 206 H Calcium 8.0 L Alkaline Phosphatase 141 H C-Reactive Protein 30.70 H Albumin 3.0 L Urine WBC (Auto)
[2022-03-07] MEDS: ACETAMINOPHEN 325 MG TAB PO PRN ×2 (09:14→19:28)
[2022-03-07] MEDS ORDERED: CEFEPIME/NS 2 GM/100 ML 2 GM/100 ML BAG IV SCH (10:00)
[2022-03-07] MEDS ORDERED: FAMOTIDINE 20 MG/2 ML INJ IV SCH (10:00)
[2022-03-07] MEDS ORDERED: HEPARIN 10,000 UNITS/10 ML VIAL IV PRN (11:03)
--- NOTE | 2022-03-07 11:09 | Event Note ---
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 Fully AAO, on RA, denied any pain nor any discomfort at this time. Patient remains with lower extremity paralysis with palpable pedal pulses. NeuroSurgery is on consult for possible epidural abcess, MRI Lumbar/Spine pending. Given known history of PE/DVT, heparin gtt was initiated per protocol, and vascular Surgery consulted for further eval. Patient is also on Levophed gtt for hypotension, IVF bolus administered, wean off pressors as tolerated for MAP above 65. Continue current IV Abx for possible osteomyelitis, blood cultures pending. Will consult ID for IV Abx management. General Surgery also on consult for Right toe diabetic ulcer. Continue continuous IVF for hypernatremia and K repleted. Continue to monitor and replace electrolytes as needed, trend BMP. Plan of care discussed with patient at the bedside. All questions and concerns addressed at this time. <RICHELLE LAWRENCE - Last Filed: 03/08/22 07:36> I saw and evaluated the patient. I agree with the findings and the plan of care as documented in the Nurse Practitioner's~note, with the following corrections and additions.
--- NOTE | 2022-03-07 11:09 | Consultation ---
History of Present Illness Consult date: 03/07/22 - History of present illness History of present illness: 51 yo male with newly diagnosed DM presents with acute LE weakness and draining ulcer of the right great toe. Past History Past Medical History: diabetes, DVT Past Surgical History: No surgical history Social history: smoking Family history: hypertension Medications and Allergies Allergies Allergy/AdvReac Type Severity Reaction Status Date / Time Fish Containing Products Allergy Anaphylaxis Verified 03/07/22 00:21 Active Meds: Active Medications Acetaminophen (Acetaminophen 325 Mg Tab) 650 mg PO Q4H PRN PRN Reason: Pain MILD(1-3)/Fever >100.5/DIETRICH Last Admin: 03/07/22 09:14 Dose: 650 mg Albuterol (Albuterol 2.5 Mg/3 Ml Nebu) 2.5 mg IH Q3HRT PRN PRN Reason: Shortness Of Breath Albuterol/Ipratropium (Ipratropium/Albuterol Sulfate 3 Ml Ampul.Neb) 1 ampul IH Q6HRT [facility] Last Admin: 03/07/22 08:23 Dose: 1 ampul Dextrose (Dextrose 50% In Water (25gm) 50 Ml Syringe) 50 ml IV Q30MIN PRN; Prot ocol PRN Reason: Hypoglycemia Famotidine (Famotidine 20 Mg/2 Ml Inj) 20 mg IV BID [facility] Last Admin: 03/07/22 09:13 Dose: 20 mg Hydromorphone HCl (Hydromorphone 1 Mg/1 Ml Inj) 0.5 mg IV Q3H PRN PRN Reason: Pain , Severe (7-10) NORepinephrine/NS 8 MG-250 ML (Norepinephrine/Ns 8 Mg-250 Ml (Double Conc)) 8 mg in 250 mls @ 3.75 mls/hr IV TITRATE [facility]; Protocol Last Titration: 03/07/22 06:37 Dose: 8 mcg/min, 15 mls/hr Sodium Chloride (Nacl 0.9% 1000 Ml) 1,000 mls @ 125 mls/hr IV DIRECT [facility] Last Admin: 03/07/22 05:44 Dose: 125 mls/hr Vancomycin HCl 1,500 mg/ (Sodium Chloride) 530 mls @ 333.333 mls/hr IV Q12H [facility] Cefepime HCl (Cefepime/Ns 2 Gm/100 Ml) 2 gm in 100 mls @ 200 mls/hr IV Q12H [facility]; Protocol Last Admin: 03/07/22 09:20 Dose: 200 mls/hr Insulin Human Lispro (Insulin Lispro 100 Unit/Ml) 0 unit SUB-Q Q6HR [facility]; Protocol Last Admin: 03/07/22 06:36 Dose: 2 unit Morphine Sulfate (Morphine 2 Mg/1 Ml Inj) 2 mg IV Q4H PRN PRN Reason: Pain, Moderate (4-6) Last Admin: 03/07/22 09:13 Dose: 2 mg Ondansetron HCl (Ondansetron 4 Mg/2 Ml Inj) 4 mg IV Q8H PRN PRN Reason: Nausea And Vomiting Sodium Chloride (Sodium Chloride 0.9% 10 Ml Flush Syringe) 10 ml IV BID [facility] Last Admin: 03/07/22 09:20 Dose: 10 ml Sodium Chloride (Sodium Chloride 0.9% 10 Ml Flush Syringe) 10 ml IV PRN PRN PRN Reason: LINE FLUSH Review of Systems All systems: negative (none) Exam Vital Signs Temp Pulse Resp BP Pulse Ox 99 F 98 H 18 100/64 98 03/06/22 23:00 03/06/22 23:00 03/06/22 23:00 03/06/22 23:00 03/06/22 23:00 - General physical appearance Positive: well developed, well nourished, no distress - Eyes Positive: PERRL, normal occular movement - ENT Positive: normal pinna, normal nares, normal mucosa, no hearing loss, no congestion - Neck Positive: no masses, no bruits, trachea midline, no venous distension - Respiratory Positive: normal expansion, normal respiratory effort, clear to auscultation - Cardiovascular Rhythm: regular Heart Sounds: Present: S1 & S2. Absent: rub, click - Extremities Extremities: no ischemia, pulses symmetrical, No edema - Breasts Breasts: normal, no mass, no skin changes - Abdomen Abdomen: Present: soft, bowel sounds normal. Absent: tender, distended Hernia: none - Genitourinary Male Genitourinary: normal Female Genitourinary: normal - Integumentary no rash, no growths, no abnormal pigmentation, other (Right great toe is edematous with 8 mm open wound on the dorsum at the IP joint draining purulen ce.) - Neurologic Neurologic: alert and oriented to time, place and person, CN II-XII intact, other (Cannot move BLE's.) - Musculoskeletal normal gait, normal posture - Psychiatric Psychiatric: appropriate mood/affect, intact judgment & insight Results - Labs 03/06/22 23:42 03/06/22 23:42 Abnormal lab results 03/06/22 03/06/22 03/06/22 Range/Units 00:00 01:58 23:42 WBC 17.0 H (4.5-11.0) K/mm3 Lymph % (Auto) 5.2 L (13.4-35.0) % Lymph # (Auto) 0.9 L (1.2-5.4) K/mm3 [place] # (Auto) 1.0 H (0.0-0.8) K/mm3 Seg Neutrophils % 88.1 H (40.0-70.0) % Seg Neutrophils # 15.0 H (1.8-7.7) K/mm3 PT (12.2-14.9) Sec. VBG pH 7.480 H (7.320-7.420) Sodium (137-145) mmol/L Potassium (3.6-5.0) mmol/L Chloride (98-107) mmol/L Glucose (75-100) mg/dL Calcium (8.4-10.2) mg/dL Alkaline Phosphatase (35-129) units/L C-Reactive Protein (0.00-1.30) mg/dL Albumin (3.9-5) g/dL Urine WBC (Auto) 26.0 H (0.0-6.0) /HPF 03/06/22 03/06/22 03/06/22 Range/Units 23:42 23:42 23:42 WBC (4.5-11.0) K/mm3 Lymph % (Auto) (13.4-35.0) % Lymph # (Auto) (1.2-5.4) K/mm3 [place] # (Auto) (0.0-0.8) K/mm3 Seg Neutrophils % (40.0-70.0) % Seg Neutrophils # (1.8-7.7) K/mm3 PT 15.3 H (12.2-14.9) Sec. VBG pH (7.320-7.420) Sodium 128 L (137-145) mmol/L Potassium 3.3 L (3.6-5.0) mmol/L Chloride 83.9 L (98-107) mmol/L Glucose 206 H (75-100) mg/dL Calcium 8.0 L (8.4-10.2) mg/dL Alkaline Phosphatase 141 H (35-129) units/L C-Reactive Protein 30.70 H (0.00-1.30) mg/dL Albumin 3.0 L (3.9-5) g/dL Urine WBC (Auto) (0.0-6.0) /HPF Diabetes panel 03/06/22 Range/Units 23:42 Sodium 128 L (137-145) mmol/L Potassium 3.3 L (3.6-5.0) mmol/L Chloride 83.9 L (98-107) mmol/L Carbon Dioxide 28 (22-30) mmol/L BUN 18 (9-20) mg/dL Creatinine 1.3 (0.8-1.3) mg/dL Glucose 206 H (75-100) mg/dL Calcium 8.0 L (8.4-10.2) mg/dL AST 29 (5-40) units/L ALT 18 (7-56) units/L Alkaline Phosphatase 141 H (35-129) units/L Total Protein 7.0 (6.3-8.2) g/dL Albumin 3.0 L (3.9-5) g/dL Calcium panel 03/06/22 Range/Units 23:42 Calcium 8.0 L (8.4-10.2) mg/dL Albumin 3.0 L (3.9-5) g/dL Pituitary panel 03/06/22 Range/Units 23:42 Sodium 128 L (137-145) mmol/L Potassium 3.3 L (3.6-5.0) mmol/L Chloride 83.9 L (98-107) mmol/L Carbon Dioxide 28 (22-30) mmol/L BUN 18 (9-20) mg/dL Creatinine 1.3 (0.8-1.3) mg/dL Glucose 206 H (75-100) mg/dL Calcium 8.0 L (8.4-10.2) mg/dL Adrenal panel 03/06/22 Range/Units 23:42 Sodium 128 L (137-145) mmol/L Potassium 3.3 L (3.6-5.0) mmol/L Chloride 83.9 L (98-107) mmol/L Carbon Dioxide 28 (22-30) mmol/L BUN 18 (9-20) mg/dL Creatinine 1.3 (0.8-1.3) mg/dL Glucose 206 H (75-100) mg/dL Calcium 8.0 L (8.4-10.2) mg/dL Total Bilirubin 1.00 (0.1-1.2) mg/dL AST 29 (5-40) units/L ALT 18 (7-56) units/L Alkaline Phosphatase 141 H (35-129) units/L Total Protein 7.0 (6.3-8.2) g/dL Albumin 3.0 L (3.9-5) g/dL Assessment and Plan - Patient Problems (1) Open wound of right great toe Current Visit: Yes Status: Acute Plan to address problem: 1) Arterial dopplers of RLE. 2) MRI of right foot 3) Treat RLE DVT 4) Neurosurgery evaluating BLE weakness 5) Continue broad spectrum IV antibiotics 6) Strict DM management
--- NOTE | 2022-03-07 11:26 | Consultation ---
History of Present Illness History of present illness: [place] [facility] Consult Note # Demographics Consult Type: General Neurology Patient Location: Emergency Room First Name: Stephane Last Name: Michael Date of : 1970 Age: 51 Gender: Male Facility: [facility] Time of Initial Page ( Time): 03/07/2022, 00:41 Time of Return Call ( Time): 03/07/2022, 00:45 Phone Only Consult: 51M with DM presents with bilateral lower extremity weakness and numbness. Symptom onset at 1999 this evening. Septic, febrile to 101.2, BP 107/50. Has an L2 sensorimotor level, decreased rectal tone. Right great toe abscess and osteomyelitis. Agree with neurosurgical evaluation, spine imaging preferably MRI with contrast on an emergent basis. # [employer] Telemedicine: phone only Electronically signed at 03/07/2022 11:25 ( Time) by Cole Wing MD Past History Past Medical History: diabetes, DVT Past Surgical History: No surgical history Social history: smoking Family history: hypertension Medications and Allergies Allergies Allergy/AdvReac Type Severity Reaction Status Date / Time Fish Containing Products Allergy Anaphylaxis Verified 03/07/22 00:21 Active Meds: Active Medications Acetaminophen (Acetaminophen 325 Mg Tab) 650 mg PO Q4H PRN PRN Reason: Pain MILD(1-3)/Fever >100.5/DIETRICH Last Admin: 03/07/22 09:14 Dose: 650 mg Albuterol (Albuterol 2.5 Mg/3 Ml Nebu) 2.5 mg IH Q3HRT PRN PRN Reason: Shortness Of Breath Albuterol/Ipratropium (Ipratropium/Albuterol Sulfate 3 Ml Ampul.Neb) 1 ampul IH Q6HRT [facility] Last Admin: 03/07/22 08:23 Dose: 1 ampul Dextrose (Dextrose 50% In Water (25gm) 50 Ml Syringe) 50 ml IV Q30MIN PRN; Protocol PRN Reason: Hypoglycemia Famotidine (Famotidine 20 Mg/2 Ml Inj) 20 mg IV BID [facility] Last Admin: 03/07/22 09:13 Dose: 20 mg Heparin Sodium (Porcine) (Heparin 10,000 Units/10 Ml Vial) 3,700 unit 40 unit/kg (3700 unit) IV Q6H PRN PRN Reason: Anti-Xa Assay < 0.1 units/ml Hydromorphone HCl (Hydromorphone 1 Mg/1 Ml Inj) 0.5 mg IV Q3H PRN PRN Reason: Pain , Severe (7-10) NORepinephrine/NS 8 MG-250 ML (Norepinephrine/Ns 8 Mg-250 Ml (Double Conc)) 8 mg in 250 mls @ 3.75 mls/hr IV TITRATE [facility]; Protocol Last Titration: 03/07/22 06:37 Dose: 8 mcg/min, 15 mls/hr Sodium Chloride (Nacl 0.9% 1000 Ml) 1,000 mls @ 125 mls/hr IV DIRECT [facility] Last Admin: 03/07/22 05:44 Dose: 125 mls/hr Vancomycin HCl 1,500 mg/ (Sodium Chloride) 530 mls @ 333.333 mls/hr IV Q12H [facility] Cefepime HCl (Cefepime/Ns 2 Gm/100 Ml) 2 gm in 100 mls @ 200 mls/hr IV Q12H [facility]; Protocol Last Admin: 03/07/22 09:20 Dose: 200 mls/hr Heparin Sodium/Sodium Chloride (Heparin/ 0.45% Nacl-25,000 Unit/500 Ml) 25,000 unit in 500 mls @ 27 mls/hr IV TITR [facility]; Protocol Sodium Chloride (Nacl 0.9% 1000 Ml) 1,000 mls @ 999 mls/hr IV BOLUS ONE Stop: 03/07/22 12:15 Insulin Human Lispro (Insulin Lispro 100 Unit/Ml) 0 unit SUB-Q Q6HR [facility]; Protocol Last Admin: 03/07/22 06:36 Dose: 2 unit Morphine Sulfate (Morphine 2 Mg/1 Ml Inj) 2 mg IV Q4H PRN PRN Reason: Pain, Moderate (4-6) Last Admin: 03/07/22 09:13 Dose: 2 mg Ondansetron HCl (Ondansetron 4 Mg/2 Ml Inj) 4 mg IV Q8H PRN PRN Reason: Nausea And Vomiting Sodium Chloride (Sodium Chloride 0.9% 10 Ml Flush Syringe) 10 ml IV BID [facility] Last Admin: 03/07/22 09:20 Dose: 10 ml Sodium Chloride (Sodium Chloride 0.9% 10 Ml Flush Syringe) 10 ml IV PRN PRN PRN Reason: LINE FLUSH Physical Examination - Vital Signs Vital Signs: Vital Signs Temp Pulse Resp BP Pulse Ox 99 F 98 H 18 100/64 98 03/06/22 23:00 03/06/22 23:00 03/06/22 23:00 03/06/22 23:00 03/06/22 23:00 Results - Laboratory Findings CBC and BMP: 03/06/22 23:42 03/06/22 23:42 Abnormal Lab Findings: Abnormal Labs 03/06/22 03/06/22 03/06/22 00:00 01:58 23:42 WBC 17.0 H Lymph % (Auto) 5.2 L Lymph # (Auto) 0.9 L [place] # (Auto) 1.0 H Seg Neutrophils % 88.1 H Seg Neutrophils # 15.0 H PT VBG pH 7.480 H Sodium Potassium Chloride Glucose Calcium Alkaline Phosphatase C-Reactive Protein Albumin Urine WBC (Auto) 26.0 H 03/06/22 03/06/22 03/06/22 23:42 23:42 23:42 WBC Lymph % (Auto) Lymph # (Auto) [place] # (Auto) Seg Neutrophils % Seg Neutrophils # PT 15.3 H VBG pH Sodium 128 L Potassium 3.3 L Chloride 83.9 L Glucose 206 H Calcium 8.0 L Alkaline Phosphatase 141 H C-Reactive Protein 30.70 H Albumin 3.0 L Urine WBC (Auto)
[2022-03-07 11:42] LABS: Hematocrit 33.7 % (35.5-45.6); Hemoglobin 10.9 gm/dl (11.8-15.2)
[2022-03-07 11:53] LABS: INR 1.02 (0.87-1.13)
[2022-03-07 11:54] LABS: Partial Thromboplastin Time 24.6 Sec. (24.2-36.6)
[2022-03-07] MEDS ORDERED: HEPARIN/ 0.45% NACL DRIP 25,000 UNIT/500 ML BAG IV SCH (12:00)
[2022-03-07] MEDS ORDERED: VANCOMYCIN 1,500 MG in SODIUM CHLORIDE 0.9% 500 ML 500 ML IV SCH (12:00)
[2022-03-07 12:01] LABS: BUN/Creatinine Ratio 15; Blood Urea Nitrogen 16 mg/dL (9-20); Calcium 7.3 mg/dL (8.4-10.2); Hemolysis Index 6
--- NOTE | 2022-03-07 12:09 | Consultation ---
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 He denies headache, neck pain, chest pain. Patient denies IV drug use. Patient is not sure if he is having bladder or bowel retention or incontinence.He has some preserved sensation in his lower extremities. In the emergency CT scan abdomen pelvis shows no intra-abdominal abscess. Chest x-ray shows no acute finding, CT cervical spine without contrast shows no acute fracture or static subluxation of the cervical spine. Moderate severe degenerative disc disease at C6-C7. CT lumbar spine without contrast shows no static subluxation or acute fracture of the lumbar spine. Scattered degenerative disc and facet disease of the lumbar spine. Foot x-ray shows cortical irregularity and erosive changes along the distal aspect of the proximal phalanx of the first disease suggesting osteomyelitis. Venous Doppler of the lower extremity shows deep vein thrombus noted from right popliteal vein to the right common femoral vein Past History Past Medical History: diabetes, DVT, other (Patient is homeless) Past Surgical History: No surgical history Social history: smoking Family history: hypertension Medications and Allergies Allergies Allergy/AdvReac Type Severity Reaction Status Date / Time Fish Containing Products Allergy Anaphylaxis Verified 03/07/22 00:21 Active Meds: Active Medications Acetaminophen (Acetaminophen 325 Mg Tab) 650 mg PO Q4H PRN PRN Reason: Pain MILD(1-3)/Fever >100.5/DIETRICH Last Admin: 03/07/22 09:14 Dose: 650 mg Albuterol (Albuterol 2.5 Mg/3 Ml Nebu) 2.5 mg IH Q3HRT PRN PRN Reason: Shortness Of Breath Albuterol/Ipratropium (Ipratropium/Albuterol Sulfate 3 Ml Ampul.Neb) 1 ampul IH Q6HRT [facility] Last Admin: 03/07/22 08:23 Dose: 1 ampul Dextrose (Dextrose 50% In Water (25gm) 50 Ml Syringe) 50 ml IV Q30MIN PRN; Protocol PRN Reason: Hypoglycemia Famotidine (Famotidine 20 Mg/2 Ml Inj) 20 mg IV BID [facility] Last Admin: 03/07/22 09:13 Dose: 20 mg Heparin Sodium (Porcine) (Heparin 10,000 Units/10 Ml Vial) 3,700 unit 40 unit/kg (3700 unit) IV Q6H PRN PRN Reason: Anti-Xa Assay < 0.1 units/ml Hydromorphone HCl (Hydromorphone 1 Mg/1 Ml Inj) 0.5 mg IV Q3H PRN PRN Reason: Pain , Severe (7-10) NORepinephrine/NS 8 MG-250 ML (Norepinephrine/Ns 8 Mg-250 Ml (Double Conc)) 8 mg in 250 mls @ 3.75 mls/hr IV TITRATE [facility]; Protocol Last Titration: 03/07/22 06:37 Dose: 8 mcg/min, 15 mls/hr Sodium Chloride (Nacl 0.9% 1000 Ml) 1,000 mls @ 125 mls/hr IV DIRECT [facility] Last Admin: 03/07/22 05:44 Dose: 125 mls/hr Vancomycin HCl 1,500 mg/ (Sodium Chloride) 530 mls @ 333.333 mls/hr IV Q12H [facility] Cefepime HCl (Cefepime/Ns 2 Gm/100 Ml) 2 gm in 100 mls @ 200 mls/hr IV Q12H [facility]; Protocol Last Admin: 03/07/22 09:20 Dose: 200 mls/hr Heparin Sodium/Sodium Chloride (Heparin/ 0.45% Nacl-25,000 Unit/500 Ml) 25,000 unit in 500 mls @ 27 mls/hr IV TITR [facility]; Protocol Sodium Chloride (Nacl 0.9% 1000 Ml) 1,000 mls @ 999 mls/hr IV BOLUS ONE Stop: 03/07/22 12:15 Insulin Human Lispro (Insulin Lispro 100 Unit/Ml) 0 unit SUB-Q Q6HR [facility]; Protocol Last Admin: 03/07/22 06:36 Dose: 2 unit Morphine Sulfate (Morphine 2 Mg/1 Ml Inj) 2 mg IV Q4H PRN PRN Reason: Pain, Moderate (4-6) Last Admin: 03/07/22 09:13 Dose: 2 mg Ondansetron HCl (Ondansetron 4 Mg/2 Ml Inj) 4 mg IV Q8H PRN PRN Reason: Nausea And Vomiting Sodium Chloride (Sodium Chloride 0.9% 10 Ml Flush Syringe) 10 ml IV BID [facility] Last Admin: 03/07/22 09:20 Dose: 10 ml Sodium Chloride (Sodium Chloride 0.9% 10 Ml Flush Syringe) 10 ml IV PRN PRN PRN Reason: LINE FLUSH Review of Systems Constitutional: weight loss (Reports over 100 to 200 pound weight loss in the last 20 years), weakness Cardiovascular: chest pain Gastrointestinal: abdominal pain Musculoskeletal: other (Pain in the right) Neurological: weakness (Lower extremities especially right) Physical Examination Vital signs: Vital Signs Temp Pulse Resp BP Pulse Ox 99 F 98 H 18 100/64 98 03/06/22 23:00 03/06/22 23:00 03/06/22 23:00 03/06/22 23:00 03/06/22 23:00 General appearance: no acute distress, alert Eyes: non-icteric ENT: oropharynx moist, other (Crowded oropharynx) Neck: supple, no lymphadenopathy, no JVD Effort: normal Ascultation: Bilateral: clear Cardiovascular: regular rate and rhythm Gastrointestinal: normoactive bowel sounds, soft, non-tender Extremities: no cyanosis, other (Edema of the both lower extremity noted specially significant edema on right lower extremity.) Musculoskeletal: other (Ulcer and inflammation and evidence of infection noted in the right big toe) normal mental status, other (Weakness lower extremities) mood appropriate Results - Laboratory Findings CBC and BMP: 03/07/22 11:12 03/07/22 11:12 PT/INR, D-dimer PT 14.5 Sec. (12.2-14.9) 03/07/22 11:12 INR 1.02 (0.87-1.13) 03/07/22 11:12 Abnormal lab findings: Abnormal Labs 03/06/22 03/06/22 03/06/22 00:00 01:58 23:42 WBC 17.0 H Hgb Hct Lymph % (Auto) 5.2 L Lymph # (Auto) 0.9 L [place] # (Auto) 1.0 H Seg Neutrophils % 88.1 H Seg Neutrophils # 15.0 H PT VBG pH 7.480 H Sodium Potassium Chloride Glucose Calcium Alkaline Phosphatase C-Reactive Protein Albumin Urine WBC (Auto) 26.0 H 03/06/22 03/06/22 03/06/22 23:42 23:42 23:42 WBC Hgb Hct Lymph % (Auto) Lymph # (Auto) [place] # (Auto) Seg Neutrophils % Seg Neutrophils # PT 15.3 H VBG pH Sodium 128 L Potassium 3.3 L Chloride 83.9 L Glucose 206 H Calcium 8.0 L Alkaline Phosphatase 141 H C-Reactive Protein 30.70 H Albumin 3.0 L Urine WBC (Auto) 03/07/22 03/07/22 11:12 11:12 WBC Hgb 10.9 L Hct 33.7 L Lymph % (Auto) Lymph # (Auto) [place] # (Auto) Seg Neutrophils % Seg Neutrophils # PT VBG pH Sodium 131 L Potassium Chloride 94.0 L Glucose 221 H Calcium 7.3 L Alkaline Phosphatase C-Reactive Protein Albumin Urine WBC (Auto) - Diagnostic Findings Chest x-ray: image reviewed (Unremarkable) U/S of Legs: image reviewed (Appears to have thrombus in the right lower extremity) Assessment and Plan Impression: New onset diabetes mellitus DVT right lower extremity Weakness lower extremity rule out spinal cord lesion History of heavy cigarette smoking rule out COPD Osteomyelitis right foot 7 mm nodule right lower lobe Recommendation: Initiated heparin therapy for DVT Further work-up of lower extremity weakness and swelling has been initiated with MRI etc. has been ordered. General surgery and neuro on board. Follow-up on pulmonary nodule as per Fleischner Society guidelines. Given patient has history of smoking he is high risk will require repeat CT scan in 6 months Smoking cessation counseling was provided. Total critical care time 35-minute
[2022-03-07] MEDS ORDERED: POTASSIUM CHLORIDE ER 20 MEQ TAB PO NR (12:21)
--- NOTE | 2022-03-07 14:08 | Consultation ---
History of Present Illness - Reason for Consult Consult date: 03/07/22 DVT Requesting physician: AMY QUINTANA - History of Present Illness 51-year-old male with history of diabetes, DVT, not currently on anticoagulation, past history of Tyrese's gangrene, presenting to the ER today with a complaint of bilateral lower extremity weakness and numbness, which started approximately 3 hours prior to ER arrival, and diffuse abdominal pain. He denies headache, neck pain, chest pain. Patient denies IV drug use. Patient is not sure if he is having bladder or bowel retention or incontinence.He has some preserved sensation in his lower extremities. In the emergency CT scan abdomen pelvis shows no intra-abdominal abscess. Chest x-ray shows no acute finding, CT cervical spine without contrast shows no acute fracture or static subluxation of the cervical spine. Moderate severe degenerative disc disease at C6-C7. CT lumbar spine without contrast shows no static subluxation or acute fracture of the lumbar spine. Scattered degenerative disc and facet disease of the lumbar spine. Foot x-ray shows cortical irregularity and erosive changes along the distal aspect of the proximal phalanx of the first disease suggesting osteomyelitis. Venous Doppler of the lower extremity shows deep vein thrombus noted from right popliteal vein to the right common femoral vein Vascular consulted for DVT. Reviewed CT scan of the abdomen and pelvis. CT scan of the abdomen and pelvis demonstrates a right common femoral vein thrombus extending into the profunda femoral vein and superficial femoral vein with Doppler study demonstrating extension to the popliteal vein. CT scan demonstrates no evidence of IVC thrombus or left-sided iliac thrombus. No right-sided iliac thrombus on CT. Top images of the CT abdomen and pelvis demonstrated a saddle pulmonary embolism with extension into the right lower lobar pulmonary artery Past History Past Medical History: diabetes, DVT, other (Patient is homeless) Past Surgical History: No surgical history Social history: smoking Family history: hypertension Medications and Allergies Allergies Allergy/AdvReac Type Severity Reaction Status Date / Time Fish Containing Products Allergy Anaphylaxis Verified 03/07/22 00:21 Active Meds: Active Medications Acetaminophen (Acetaminophen 325 Mg Tab) 650 mg PO Q4H PRN PRN Reason: Pain MILD(1-3)/Fever >100.5/DIETRICH Last Admin: 03/07/22 09:14 Dose: 650 mg Albuterol (Albuterol 2.5 Mg/3 Ml Nebu) 2.5 mg IH Q3HRT PRN PRN Reason: Shortness Of Breath Albuterol/Ipratropium (Ipratropium/Albuterol Sulfate 3 Ml Ampul.Neb) 1 ampul IH Q6HRT KARINE Last Admin: 03/07/22 13:08 Dose: 1 ampul Dextrose (Dextrose 50% In Water (25gm) 50 Ml Syringe) 50 ml IV Q30MIN PRN; Protocol PRN Reason: Hypoglycemia Famotidine (Famotidine 20 Mg/2 Ml Inj) 20 mg IV BID KARINE Last Admin: 03/07/22 09:13 Dose: 20 mg Heparin Sodium (Porcine) (Heparin 10,000 Units/10 Ml Vial) 3,700 unit 40 unit/kg (3700 unit) IV Q6H PRN PRN Reason: Anti-Xa Assay < 0.1 units/ml Hydromorphone HCl (Hydromorphone 1 Mg/1 Ml Inj) 0.5 mg IV Q3H PRN PRN Reason: Pain , Severe (7-10) NORepinephrine/NS 8 MG-250 ML (Norepinephrine/Ns 8 Mg-250 Ml (Double Conc)) 8 mg in 250 mls @ 3.75 mls/hr IV TITRATE KARINE; Protocol Last Titration: 03/07/22 06:37 Dose: 8 mcg/min, 15 mls/hr Sodium Chloride (Nacl 0.9% 1000 Ml) 1,000 mls @ 125 mls/hr IV DIRECT KARINE Last Admin: 03/07/22 05:44 Dose: 125 mls/hr Vancomycin HCl 1,500 mg/ (Sodium Chloride) 530 mls @ 333.333 mls/hr IV Q12H KARINE Cefepime HCl (Cefepime/Ns 2 Gm/100 Ml) 2 gm in 100 mls @ 200 mls/hr IV Q12H KARINE; Protocol Last Infusion: 03/07/22 10:00 Dose: Infused Heparin Sodium/Sodium Chloride (Heparin/ 0.45% Nacl-25,000 Unit/500 Ml) 25,000 unit in 500 mls @ 27 mls/hr IV TITR KARINE; Protocol Last Admin: 03/07/22 14:00 Dose: 1,350 units/hr, 27 mls/hr Insulin Human Lispro (Insulin Lispro 100 Unit/Ml) 0 unit SUB-Q Q6HR KARINE; Protocol Last Admin: 03/07/22 13:45 Dose: 3 unit Morphine Sulfate (Morphine 2 Mg/1 Ml Inj) 2 mg IV Q4H PRN PRN Reason: Pain, Moderate (4-6) Last Admin: 03/07/22 09:13 Dose: 2 mg Ondansetron HCl (Ondansetron 4 Mg/2 Ml Inj) 4 mg IV Q8H PRN PRN Reason: Nausea And Vomiting Potassium Chloride (Potassium Chloride Er 20 Meq Tab) 40 meq PO ONCE NR Stop: 03/07/22 15:00 Sodium Chloride (Sodium Chloride 0.9% 10 Ml Flush Syringe) 10 ml IV BID KARINE Last Admin: 03/07/22 09:20 Dose: 10 ml Sodium Chloride (Sodium Chloride 0.9% 10 Ml Flush Syringe) 10 ml IV PRN PRN PRN Reason: LINE FLUSH Review of Systems ROS unobtainable: due to mental status (Denies everything to a misleading amount) Exam - Constitutional Vitals: Temp Pulse Resp BP Pulse Ox 98.7 F 100 H 24 121/60 91 03/07/22 11:21 03/07/22 08:23 03/07/22 08:23 03/07/22 07:30 03/07/22 08:12 General appearance: Present: mild distress (2 L oxygen, tachypneic, on single pressor) - EENT Eyes: Present: EOM intact ENT: hearing intact - Respiratory Respiratory effort: accessory muscle use, other (Tachypneic) - Cardiovascular Rhythm: other (Borderline tachycardic) - Extremities Extremities: pulses intact (Palpable dorsalis pedis and posterior tibial arteries bilaterally), normal temperature, normal color Extremity abnormal: edema (2+ edema right lower extremity), other (Right first digit chronic ulceration with erythema) - Abdominal General gastrointestinal: Present: soft, non-tender - Psychiatric Psychiatric: other (Flat affect, quickly denies questions and does not appear to consider the question before denying) - Neurologic Neurologic: other (Insensate of the lower extremities, cannot move lower extremities, 5 out of 5 strength and full sensation of the upper extremities) Results - Labs CBC & Chem 7: 03/07/22 11:12 03/07/22 11:12 Labs: Abnormal lab results 03/06/22 03/06/22 03/06/22 Range/Units 00:00 01:58 23:42 WBC 17.0 H (4.5-11.0) K/mm3 Hgb (11.8-15.2) gm/dl Hct (35.5-45.6) % Lymph % (Auto) 5.2 L (13.4-35.0) % Lymph # (Auto) 0.9 L (1.2-5.4) K/mm3 [place] # (Auto) 1.0 H (0.0-0.8) K/mm3 Seg Neutrophils % 88.1 H (40.0-70.0) % Seg Neutrophils # 15.0 H (1.8-7.7) K/mm3 PT (12.2-14.9) Sec. VBG pH 7.480 H (7.320-7.420) Sodium (137-145) mmol/L Potassium (3.6-5.0) mmol/L Chloride (98-107) mmol/L Glucose (75-100) mg/dL Calcium (8.4-10.2) mg/dL Alkaline Phosphatase (35-129) units/L C-Reactive Protein (0.00-1.30) mg/dL Albumin (3.9-5) g/dL Urine WBC (Auto) 26.0 H (0.0-6.0) /HPF 03/06/22 03/06/22 03/06/22 Range/Units 23:42 23:42 23:42 WBC (4.5-11.0) K/mm3 Hgb (11.8-15.2) gm/dl Hct (35.5-45.6) % Lymph % (Auto) (13.4-35.0) % Lymph # (Auto) (1.2-5.4) K/mm3 [place] # (Auto) (0.0-0.8) K/mm3 Seg Neutrophils % (40.0-70.0) % Seg Neutrophils # (1.8-7.7) K/mm3 PT 15.3 H (12.2-14.9) Sec. VBG pH (7.320-7.420) Sodium 128 L (137-145) mmol/L Potassium 3.3 L (3.6-5.0) mmol/L Chloride 83.9 L (98-107) mmol/L Glucose 206 H (75-100) mg/dL Calcium 8.0 L (8.4-10.2) mg/dL Alkaline Phosphatase 141 H (35-129) units/L C-Reactive Protein 30.70 H (0.00-1.30) mg/dL Albumin 3.0 L (3.9-5) g/dL Urine WBC (Auto) (0.0-6.0) /HPF 03/07/22 03/07/22 Range/Units 11:12 11:12 WBC (4.5-11.0) K/mm3 Hgb 10.9 L (11.8-15.2) gm/dl Hct 33.7 L (35.5-45.6) % Lymph % (Auto) (13.4-35.0) % Lymph # (Auto) (1.2-5.4) K/mm3 [place] # (Auto) (0.0-0.8) K/mm3 Seg Neutrophils % (40.0-70.0) % Seg Neutrophils # (1.8-7.7) K/mm3 PT (12.2-14.9) Sec. VBG pH (7.320-7.420) Sodium 131 L (137-145) mmol/L Potassium 3.0 L (3.6-5.0) mmol/L Chloride 94.0 L (98-107) mmol/L Glucose 221 H (75-100) mg/dL Calcium 7.3 L (8.4-10.2) mg/dL Alkaline Phosphatase (35-129) units/L C-Reactive Protein (0.00-1.30) mg/dL Albumin (3.9-5) g/dL Urine WBC (Auto) (0.0-6.0) /HPF - Imaging and Cardiology CT scan - abdomen: report reviewed, image reviewed Venous US: report reviewed, image reviewed Assessment and Plan 51-year-old male with past medical history of submassive pulmonary embolism and Tyrese's gangrene who presents with inability to feel and move the lower extremities. Found to have right lower extremity DVT, osteomyelitis of the right first digit, and submassive pulmonary embolism. Patient has submassive pulmonary embolism and is currently on anticoagulation. He is borderline tachycardic. He is on a single pressor which is being titrated down. He is on 2 L nasal cannula and tachypneic. Patient also has an extensive right lower extremity DVT. He also has osteomyelitis of the right first digit. What makes his management complicated is his inability to move and feel his lower extremities. He is scheduled for MRIs of the spine, brain, and lower extremities. Will need neurology and/or neurosurgery to determine management of this issue. He has palpable pedal pulses and no evidence of phlegmasia of the right lower ex tremity. No acute limb ischemia or venous ischemia. Until his lower extremity paralysis and numbness is better defined, I hesitate to put him through any invasive procedures. Recommend heparin drip. May need pulmonary artery thrombectomy and right lower extremity thrombectomy afterwards. We will make him n.p.o. after midnight except sips of water with meds in case he requires procedure tomorrow.
--- NOTE | 2022-03-07 14:13 | Vascular Lab Report ---
DUPLEX DOPPLER LOWER EXTREMITY ARTERIAL, RIGHT INDICATION / CLINICAL INFORMATION: Diabetic ulcer, right great toe. TECHNIQUE: Arterial duplex examination of the right lower extremity performed using B-mode, color yoly w and spectral Doppler assessment. FINDINGS: RIGHT: Common Femoral Artery: PSV 135 cm/sec. Triphasic waveform. Proximal SFA: PSV 144 cm/sec. Triphasic waveform. Mid SFA: PSV 120 cm/sec. Triphasic waveform. Distal SFA: PSV 89 cm/sec. Triphasic waveform. Popliteal Artery: PSV 93 cm/sec. Triphasic waveform. Posterior tibial artery: PSV 93 cm/sec. Triphasic waveform. Dorsalis Pedis Artery: PSV 21 cm/sec. Triphasic waveform. ADDITIONAL FINDINGS: None. RIGHT NINA: Not calculated. IMPRESSION: 1. No significant right lower extremity peripheral artery disease. Ankle-Brachial Index (NINA): - Calcified arteries > 1.4 - Normal = 0.9-1.4 - Mild PAD = 0.7-0.89 - Moderate PAD = 0.51-0.69 - Severe PAD < 0.5 Doppler Waveform: - Triphasic is normal. - Biphasic is abnormal if clear transition from triphasic signal along vascular tree. - Monophasic is abnormal. Scribed by: Laura Echevarria RDMS, RVT, [email or web address] Scribed: 03/07/2022 12:44 PM I have reviewed the images, agree with this report, and edited this report as needed. Signer Name: Paddy Zhao MD Signed: 03/07/2022 2:09 PM Workstation Name: [email or web address]
--- NOTE | 2022-03-07 17:38 | Magnetic Resonance Report ---
MRI THORACIC SPINE WITHOUT AND WITH CONTRAST INDICATION / CLINICAL INFORMATION: Diffuse abdominal pain lower extremity normal. TECHNIQUE: Multisequence, multiplanar images of the thoracic spine were obtained. COMPARISON: None available. FINDINGS: Abnormal MRI scan; very limited MRI scan due to poor [id number] ALIGNMENT: Normal thoracic kyphosis without significant scoliosis. VERTEBRAE:Normal marrow signal and vertebral body height for age. VISUALIZED SPINAL CORD: Thecal sac and the spinal cord are displaced anteriorly between T5-T6 disc le trinity and T9-T10 disc level; dorsal epidural space has expanded slightly; in the contrast enhanced seri es (fat-suppressed images) enhancement in the dorsal epidural space; suggest epidural phlegmon with t he focal areas of abscess; no enhancement within the disc space; enhancement in the anterior paraspin al space; phlegmon with abscess INTERVERTEBRAL DISCS: Facet joint hypertrophic changes in the lower thoracic spine at T9-T10, T10-T11 and T11-T12 disc levels. Neuroforamina are normal. DEGENERATIVE FINDINGS: No significant degenerative findings. PARASPINAL SOFT TISSUES: No significant abnormality. ADDITIONAL FINDINGS: None. IMPRESSION: Very limited MRI scan due to poor [id number] Dural sac is displaced anteriorly with resulting in cord compression between T5-T6 and T9-T10 disc le vels; enhancing dorsal epidural space at this level; epidural phlegmon with focal areas of abscess fo rmation; no discitis; inflammatory changes in the anterior prevertebral space also Signer Name: Daniel Monroe MD Signed: 03/07/2022 5:34 PM Workstation Name: [email or web address]
--- NOTE | 2022-03-07 17:44 | Magnetic Resonance Report ---
MRI LUMBAR SPINE WITHOUT AND WITH CONTRAST INDICATION / CLINICAL INFORMATION: LOWER EXT weakness epidural abscess. TECHNIQUE: Multisequence, multiplanar images of the lumbar spine were obtained. COMPARISON: None available. FINDINGS: Lumbosacral junction L5-S1 ALIGNMENT: Normal lumbar lordosis without significant scoliosis. VERTEBRAE:Normal marrow signal and vertebral body height for age. VISUALIZED SPINAL CORD: No significant abnormality. Conus ends at L1-L2 disc level [id number] ANALYSIS: L1-2: Focal midline disc protrusion;` neuroforamina are normal L2-3: Disc profile and the neuroforamina are normal; mild facet joint degenerative changes L3-4: Disc profile and the neuroforamina are normal; mild facet joint degenerative changes L4-5: Disc herniation towards left subarticular zone displacing the dural sac; neuroforamina are norm al; Lateral recess stenoses on the left side L5-S1: Laminotomy changes on the left side; midline disc protrusion; neuroforamina are normal; EPIDURAL SPACE: Normal PARASPINAL SOFT TISSUES: No significant abnormality. ADDITIONAL FINDINGS: None. IMPRESSION: Normal epidural space L1-L2: Focal midline disc protrusion L4-L5: Disc herniation towards the left subarticular zone L5-S1: Laminotomy changes on the left side; midline disc protrusion Signer Name: Daniel Monroe MD Signed: 03/07/2022 5:39 PM Workstation Name: [email or web address]
--- NOTE | 2022-03-07 18:32 | Consultation ---
History of Present Illness Consult date: 03/07/22 Requesting physician: AFRHAN NIEVES Reason for Consult: Concern for spinal epidural abscess Chief complaint: Leg weakness History of present illness: Stephane Rodriguez is a 51 year old Male w/ history of Diabetes, DVT, Tyrese's gangrene. He presented to [facility] last night with complaints of acute lower extremity weakness. He denies any precipitant or fall. He was hypotensive upon arrival, with concern for sepsis. CT T/L upon arrival was unremarkable. He was admitted to the ICU for supportive management. His labs studies were notable for leukocytosis and hyponatremia. An MRI was ordered. NSGY was consulted for further evaluation. Presently, Mr. Rodriguez reports absence of sensation from the waist down to his feet. He has no volitional movement of his lower extremities. He denies significant pain. Past History Past Medical History: diabetes, DVT, other (Patient is homeless) Past Surgical History: No surgical history Social history: smoking Family history: hypertension Medications and Allergies Allergies Allergy/AdvReac Type Severity Reaction Status Date / Time Fish Containing Products Allergy Anaphylaxis Verified 03/07/22 00:21 Active Meds: Active Medications Acetaminophen (Acetaminophen 325 Mg Tab) 650 mg PO Q4H PRN PRN Reason: Pain MILD(1-3)/Fever >100.5/DIETRICH Last Admin: 03/07/22 09:14 Dose: 650 mg Albuterol (Albuterol 2.5 Mg/3 Ml Nebu) 2.5 mg IH Q3HRT PRN PRN Reason: Shortness Of Breath Albuterol/Ipratropium (Ipratropium/Albuterol Sulfate 3 Ml Ampul.Neb) 1 ampul IH Q6HRT [facility] Last Admin: 03/07/22 13:08 Dose: 1 ampul Dextrose (Dextrose 50% In Water (25gm) 50 Ml Syringe) 50 ml IV Q30MIN PRN; Protocol PRN Reason: Hypoglycemia Famotidine (Famotidine 20 Mg/2 Ml Inj) 20 mg IV BID [facility] Last Admin: 03/07/22 09:13 Dose: 20 mg Heparin Sodium (Porcine) (Heparin 10,000 Units/10 Ml Vial) 3,700 unit 40 unit/kg (3700 unit) IV Q6H PRN PRN Reason: Anti-Xa Assay < 0.1 units/ml Hydromorphone HCl (Hydromorphone 1 Mg/1 Ml Inj) 0.5 mg IV Q3H PRN PRN Reason: Pain , Severe (7-10) NORepinephrine/NS 8 MG-250 ML (Norepinephrine/Ns 8 Mg-250 Ml (Double Conc)) 8 mg in 250 mls @ 3.75 mls/hr IV TITRATE KARINE; Protocol Last Titration: 03/07/22 15:00 Dose: Infused Sodium Chloride (Nacl 0.9% 1000 Ml) 1,000 mls @ 125 mls/hr IV DIRECT KARINE Last Admin: 03/07/22 14:07 Dose: 125 mls/hr Vancomycin HCl 1,500 mg/ (Sodium Chloride) 530 mls @ 333.333 mls/hr IV Q12H KARINE Last Infusion: 03/07/22 15:40 Dose: Infused Cefepime HCl (Cefepime/Ns 2 Gm/100 Ml) 2 gm in 100 mls @ 200 mls/hr IV Q12H KARINE; Protocol Last Infusion: 03/07/22 10:00 Dose: Infused Heparin Sodium/Sodium Chloride (Heparin/ 0.45% Nacl-25,000 Unit/500 Ml) 25,000 unit in 500 mls @ 27 mls/hr IV TITR KARINE; Protocol Last Admin: 03/07/22 14:00 Dose: 1,350 units/hr, 27 mls/hr Insulin Human Lispro (Insulin Lispro 100 Unit/Ml) 0 unit SUB-Q Q6HR KARINE; Protocol Last Admin: 03/07/22 13:45 Dose: 3 unit Morphine Sulfate (Morphine 2 Mg/1 Ml Inj) 2 mg IV Q4H PRN PRN Reason: Pain, Moderate (4-6) Last Admin: 03/07/22 09:13 Dose: 2 mg Ondansetron HCl (Ondansetron 4 Mg/2 Ml Inj) 4 mg IV Q8H PRN PRN Reason: Nausea And Vomiting Sodium Chloride (Sodium Chloride 0.9% 10 Ml Flush Syringe) 10 ml IV BID [facility] Last Admin: 03/07/22 09:20 Dose: 10 ml Sodium Chloride (Sodium Chloride 0.9% 10 Ml Flush Syringe) 10 ml IV PRN PRN PRN Reason: LINE FLUSH Review of Systems All systems: negative (what is specified in HPI) Physical Examination - Vital Signs Vital Signs: Vital Signs Temp Pulse Resp BP Pulse Ox 99 F 98 H 18 100/64 98 03/06/22 23:00 03/06/22 23:00 03/06/22 23:00 03/06/22 23:00 03/06/22 23:00 - Physical Exam Narrative exam: seen and examined no acute distress NC/AT RRR breathing non-labored abdomen soft no cyanosis or clubbing A&Ox3 CNII-XII intact upper extremity strength full LE strength 0/5 in all myotomes sensation diminished at T10 sensory level reflexes mute at patella and achilles Results - Laboratory Findings CBC and BMP: 03/07/22 11:12 03/07/22 11:12 Abnormal Lab Findings: Abnormal Labs 03/06/22 03/06/22 03/06/22 00:00 01:58 23:42 WBC 17.0 H Hgb Hct Lymph % (Auto) 5.2 L Lymph # (Auto) 0.9 L [place] # (Auto) 1.0 H Seg Neutrophils % 88.1 H Seg Neutrophils # 15.0 H PT VBG pH 7.480 H Sodium Potassium Chloride Glucose POC Glucose Calcium Alkaline Phosphatase C-Reactive Protein Albumin Urine WBC (Auto) 26.0 H 03/06/22 03/06/22 03/06/22 23:42 23:42 23:42 WBC Hgb Hct Lymph % (Auto) Lymph # (Auto) [place] # (Auto) Seg Neutrophils % Seg Neutrophils # PT 15.3 H VBG pH Sodium 128 L Potassium 3.3 L Chloride 83.9 L Glucose 206 H POC Glucose Calcium 8.0 L Alkaline Phosphatase 141 H C-Reactive Protein 30.70 H Albumin 3.0 L Urine WBC (Auto) 03/07/22 03/07/22 03/07/22 11:06 11:12 11:12 WBC Hgb 10.9 L Hct 33.7 L Lymph % (Auto) Lymph # (Auto) [place] # (Auto) Seg Neutrophils % Seg Neutrophils # PT VBG pH Sodium 131 L Potassium 3.0 L Chloride 94.0 L Glucose 221 H POC Glucose 214 H Calcium 7.3 L Alkaline Phosphatase C-Reactive Protein Albumin Urine WBC (Auto) - Diagnostic Findings Additional findings: MRI T spine demonstrates a large dorsal epidural abscess from T5-10 causing marked anterior cord displacement and canal stenosis. Assessment and Plan 51 y/o M w/ acute paraplegia, large dorsal epidural abscess in the context of newly discovered DVT/saddle PE -unfortunately, patient is not a candidate for emergent surgical intervention until he has an IVC filter placed and the saddle PE has been addressed -after speaking with Dr. Rouse, we both agree that this patient should be transferred to a higher level of care for Neuro-film and video graphics designer evaluation, MAP parameters, and further care. -Please notify if questions/concerns
--- NOTE | 2022-03-07 19:07 | Event Note ---
[facility] transfer line notified. Patient accepted for transfer. Awaiting bed assignment and pending transfer at this time.
[2022-03-07 21:15] VITALS: BP 83/50
== END 2022-03-07 21:00 | disposition short-term general hospital (02) | DRG 871 ==
LOC: ED 22:10 → CC1 03-07 06:52
PROVIDERS: ADMIT Hospitalist; ATTEND Internal Medicine
DX: A41.9 Sepsis, unspecified organism (principal); G06.2 Extradural and subdural abscess, unspecified; M86.8X7 Other osteomyelitis, ankle and foot; I82.4Z1 Acute embolism and thrombosis of unspecified deep veins of right distal lower extremity; S91.101A Unspecified open wound of right great toe without damage to nail, initial encounter; R29.898 Other symptoms and signs involving the musculoskeletal system; E11.69 Type 2 diabetes mellitus with other specified complication; F17.200 Nicotine dependence, unspecified, uncomplicated; X58.XXXA Exposure to other specified factors, initial encounter; Y93.89 Activity, other specified; Y92.89 Other specified places as the place of occurrence of the external cause; Z82.49 Family history of ischemic heart disease and other diseases of the circulatory system
CPT/HCPCS: 36415; 71045; 72125; 72128; 72131; 72157; 72158; 74177; 80048; 80053; 81001; 82140; 82805; 82962; 84484; 85014; 85018; 85025; 85049; 85610; 85652; 85730; 86140; 87040; 87076; 87086; 87116; 87186; 90715; 93005; 93970; 94640; 94760; 96365; 96366; 96372; 96375; 99285; 99406; G0378; J2354; J3490; Q9967; A9575; J0692; J0696; J1644; J1815; J2270; J2405; J2543; J3010; J3370; J7030; J7040